=== PATIENT | male | born 1940 | race Caucasian/White ===

== ENCOUNTER 2024-12-19 19:21 | Emergency (ER) | payer MEDICARE, MEDICAID, SELFPAY ==
[2024-12-19 19:28] VITALS: BP 134/62; PULSE 85; O2SAT 98
[2024-12-19 19:31] VITALS: BP 130/64; PULSE 72; RESP 18; TEMP 36.7; O2SAT 96; BMI 28.7
--- NOTE | 2024-12-19 22:00 | ED.MALEGU ---
HPI - Male Genitourinary General Chief complaint: Urogenital-Male Stated complaint: HEMATURIA CATH PROBLEM Time Seen by Provider: 12/19/24 21:34 History of Present Illness ED Provider: Roland Yin MD HPI Narrative: Patient is sent for inability we placed suprapubic catheter per staff Patient noncontributory Related Data Allergies Allergy/AdvReac Type Severity Reaction Status Date / Time ibuprofen [From Motrin] Allergy Severe ANGIOEDEMA Verified 12/19/24 19:42 PMFSH Social History Social History Advance Directives: No Advance Directives Information Provided: No Do you have a plan to hurt others: No Plan Physical Exam Vital Signs: Vital Signs: Last Vital Signs Temp 98.1 F 12/19/24 19:31 Pulse 72 12/19/24 19:31 Resp 18 12/19/24 19:31 BP 130/64 12/19/24 19:31 Pulse Ox 96 12/19/24 19:31 O2 Del Method Room Air 12/19/24 19:31 BMI result Body Mass Index 28.7 Const: Other: EXAM: Gen: Alert, awake, no distress. Demented no verbal responses Head: Cranial deformities chronic appearing Eyes: Anicteric, Normal conjunctiva. ENT: Moist mucosa, no pallor. ? Neck: Supple. Respiratory: Breathing comfortably, No distress.Clear to auscultation bilaterally, symmetric chest expansion, No wheeze, rales, ronchi. Cardiovascular: Regular rate and rhythm. No murmurs or rub. Well perfused periphery, warm extremities. No edema. ? Abdominal: No FOCAL TENDERNESS. Low abdominal suprapubic region with clean dry intact normal-appearing suprapubic site the initial evaluation the suprapubic catheter was sitting with the distal tip directly at the ostomy site. There was no blood little bit of urine draining. The urine in the drainage catheter was cloudy thick blood-tinged. Normal appearing suprapubic tract tissue protruding from the ostomy : No flank tenderness. Medical Decision Making Medical Decision Making [facility] Narrative: 84-year-old male with dislodged suprapubic catheter. The catheter was advanced with balloon expanded with 10 cc of saline confirmed with dynamic bladder ultrasound at the bedside. No obstructive uropathy seen no sirs or sepsis criteria presumably the patient is getting ongoing treatment for UTI. The patient was sent not for diagnostic evaluation but for replacement of the tube so I will defer additional UTI treatment diagnosis to the staff at his facility Procedures Procedure Narrative Procedure Narrative: Suprapubic catheter which was displaced with decompressed balloon was reintroduced. Balloon filled with 10 cc. Confirmation with bedside ultrasound shows inflated balloon in the bladder no evidence of hydronephrosis Catheter Insertion (Urinary) Date of insertion: 12/20/24 Reason for placing indwelling catheter: Other (Dislodged chronic suprapubic) Bladder scan/ultrasound used before catheterization: Yes Estimated amount of urine (mLs): 20 Catheter type/location: Suprapubic Results: successfully catheterized-immediate flow Procedure performed: without complications Complications: None Discharge Plan Discharge Clinical Impression: Chronic suprapubic catheter Patient Disposition: [facility] Instructions: Urinary Tract Infection in Men (ED) Additional Instructions: The patient came in with a displaced suprapubic catheter. Under ultrasound guidance this was replaced and irrigated effectively. No signs of urologic obstruction were seen after this the balloon was confirmed to be inflated within the bladder. Print Language: Hungarian
== END 2024-12-20 00:06 | disposition skilled nursing facility (03) ==
PROVIDERS: Emergency Provider Emergency Medicine
DX: R31.9 Hematuria, unspecified (principal); T83.028A Displacement of other urinary catheter, initial encounter; Y73.2 Prosthetic and other implants, materials and accessory gastroenterology and urology devices associated with adverse incidents; Y92.89 Other specified places as the place of occurrence of the external cause
CPT/HCPCS: 51702; 99283; 99284

== ENCOUNTER 2025-07-01 03:23 | Inpatient (IN) | payer MEDICARE, MEDICAID, SELFPAY ==
[2025-07-01] VITALS (16 sets, daily range): BP systolic 100–160; BP diastolic 57–94; PULSE 90–138; RESP 16–20; TEMP 35.8–36.9; O2SAT 90–98; BMI 25.1; BMI 32.7
--- NOTE | 2025-07-01 | ECG_ITS ---
Test Reason : tachycardia Blood Pressure : */* mmHG Vent. Rate : 103 BPM Atrial Rate : 103 BPM P-R Int : 250 ms QRS Dur : 100 ms QT Int : 334 ms P-R-T Axes : * -48 10 degrees QTcB Int : 437 ms Sinus tachycardia with 1st degree A-V block Left axis deviation Inferior infarct (cited on or before 01-Jul-2025) Anteroseptal infarct (cited on or before 28-Aug-2008) Abnormal ECG When compared with ECG of 01-Jul-2025 08:19, Premature ventricular complexes are no longer Present Nonspecific T wave abnormality has replaced inverted T waves in Inferior leads QT has shortened Referred By: Tan Patterson Electronically Signed By: SERAFIN QUIROS MD
--- NOTE | ~2025-07-01 | XR_ITS ---
CLINICAL HISTORY: hypoxia 1 view chest x-ray Comparison: None provided Findings: There is mild coarsening of interstitial markings in the right upper lobe. There is elevation of the left hemidiaphragm. Normal size heart. No acute fracture. IMPRESSION: 1. Mild nonspecific coarsening of the interstitial markings in the right upper lobe. 2. Elevation of the left hemidiaphragm. This document has been electronically signed by: Chaparrita Prasad on 07/01/2025 07:59:55
--- NOTE | ~2025-07-01 | CT_ITS ---
CLINICAL HISTORY: osteomyelitis sacral region CT abdomen and pelvis with contrast Comparison: None provided Findings: Mild dependent subsegmental atelectasis is seen in bilateral lower lobes. Several nonobstructive right renal stones are present measuring up to 9 mm. 1.1 cm enhancing right superior renal lesion is present (axial image 28 of series 3). Bilateral renal cortical atrophy is present. The liver, gallbladder, pancreas, spleen, and bilateral adrenal glands appear within normal limits. There is no evidence of bowel obstruction. The appendix appears normal. There is no pneumoperitoneum or ascites. Small fat containing umbilical hernia is present. The urinary bladder is decompressed by a superior pubic Tomlinson catheter. There is no adenopathy. Left ischial decubitus ulcer is present with skin thickening. There has been prior resection of S5. There is demineralization of the visualized bones. Severe degenerative changes are seen in the spine with Schmorl's node at the superior endplate of L3. IMPRESSION: 1. Left ischial decubitus ulcer with adjacent skin thickening. 2. 1.1 cm enhancing right superior renal lesion. Recommend nonemergent CT or MRI renal mass protocol for further evaluation. 3. Several nonobstructive right renal stones measuring up to 9 mm. 4. Other findings as described. This document has been electronically signed by: Chaparrita Prasad on 07/01/2025 06:44:24
--- NOTE | ~2025-07-01 | CT_ITS ---
CLINICAL HISTORY: trauma CT head without contrast Comparison: None provided Findings: Focal encephalomalacia is seen in the left occipital lobe. Cortical volume loss is seen with associated mild prominence of the ventricular system. Mild bilateral periventricular hypodensities are noted. There is no evidence of hemorrhage. Mild mucosal thickening is seen in bilateral ethmoid air cells. There is opacification of left mastoid air cells. The orbits are within normal limits. Calvarial thickening is present. No acute fracture is identified. IMPRESSION: 1. No acute intracranial findings. 2. Remote left occipital lobe infarct. 3. Mild chronic microvascular ischemic disease. 4. Calvarial thickening. 5. Bilateral ethmoid air cell and left mastoid air cell disease. This document has been electronically signed by: Chaparrita Prasad on 07/01/2025 06:28:44
--- NOTE | ~2025-07-01 | CT_ITS ---
CLINICAL HISTORY: trauma CT cervical spine without contrast Comparison: None provided Findings: Disc space narrowing is seen at C4/5, C5/6, and C6/7, severe at C5/6. Multilevel disc calcifications are present. Significant multilevel facet arthropathy is present. Cervical vertebral body heights are well-maintained. Schmorl's node is seen in the superior endplate of T3. No acute fracture is identified. There is grade 1 retrolisthesis of C3. Multifocal canal stenosis is present. The thyroid gland appears normal. The lung apices are clear. IMPRESSION: 1. No acute osseous abnormality is identified. 2. Moderate to severe degenerative changes in the cervical spine. This document has been electronically signed by: Chaparrita Prasad on 07/01/2025 06:23:43
--- NOTE | 2025-07-01 03:43 | ECG_ITS ---
Test Reason : fall Blood Pressure : */* mmHG Vent. Rate : 146 BPM Atrial Rate : * BPM P-R Int : * ms QRS Dur : 104 ms QT Int : 318 ms P-R-T Axes : * -58 196 degrees QTcB Int : 495 ms Supraventricular tachycardia Left axis deviation Inferior infarct , age undetermined Anteroseptal infarct Marked ST abnormality, possible lateral subendocardial injury Abnormal ECG When compared with ECG of 03-Sep-2013 11:52, SVT has replaced NSR with PAcs Referred By: Generic ED Physician Electronically Signed By: SERAFIN QUIROS MD
[2025-07-01 04:02] LABS: MANUAL DIFF FLAG NO
[2025-07-01 04:03] LABS: Hematocrit 41.0 % (42.0-52.0); Hemoglobin 13.1 g/dl (14.0-18.0); Imm Gran Abs Auto 0.20 X10*3/uL (0.00-0.03); Imm Gran Pct Auto 1.8 % (0.0-0.4); Lymphocytes Absolute Auto 2.2 X10*3/uL (1.2-4.9); Mean Corpuscular HGB Conc 32.0 g/dl (31.0-36.0); Mean Corpuscular Hemoglobin 29.0 pg (27.0-33.0); Mean Corpuscular Volume 90.7 fL (80.0-98.0); NRBC Abs Auto 0.000 X10*3/uL (0.0-0.012); NRBC Pct Auto 0.0 /100WBC (0.0-0.2); Platelet Count 258 X10*3/uL (160-400); Red Blood Count 4.52 X10*6/uL (4.60-5.80); White Blood Count 11.2 X10*3/uL (4.8-10.8)
[2025-07-01 04:15] LABS: Anion Gap 14 (12-20)
[2025-07-01 04:24] LABS: Troponin-I High Sensitivity 22.6 ng/L (<3.5-35.0)
[2025-07-01 04:25] LABS: Alanine Aminotransferase 16 U/L (0-40); Albumin Level 3.6 g/dL (3.5-5.0); Alkaline Phosphatase 85 U/L (39-117); Aspartate Amino Transferase 36 U/L (5-37); Blood Urea Nitrogen 30 mg/dL (9-16); Calcium 9.5 mg/dL (8.4-10.2); Carbon Dioxide 19 mmol/L (22-29); Chloride 110 mmol/L (96-108); Creatinine Clr Calc Pharmacy 59.2; Estimated Glomerular Filt Rate > 60; Magnesium 2.1 mg/dL (1.6-2.6); Potassium 3.8 mmol/L (3.3-5.1); Sodium 139 mmol/L (135-145); Total Protein 9.0 g/dL (6.5-8.0)
[2025-07-01 04:50] LABS: Appearance Urine Turbid; Glucose Urine UA Negative (Negative); PH 7.0 (5.0-9.0); Specific Gravity - Urine 1.015 (1.005-1.025); UMIC TRIGGER UACC YES
--- NOTE | 2025-07-01 05:04 | ED.GENADULT ---
HPI - General Adult General Chief complaint: Fall Stated complaint: fall Time Seen by Provider: 07/01/25 03:52 Source: EMS and RN notes reviewed Limitations: other (Dementia) History of Present Illness ED Provider: Dali Tomlinson PA-C HPI narrative: 85-year-old male with a history of dementia, prior CVA, urinary retention with chronic suprapubic catheter, recurrent urinary tract infections, hypothyroidism, who presents from [facility] after an unwitnessed fall. Per EMS, the patient fell out of bed, he was found down on the ground. History extremely limited secondary to the patient has dementia, and report from the skilled nursing is very limited. Related Data Home Medications ?Medication ?Instructions ?Recorded ?Confirmed acetaminophen 325 mg tablet 650 mg PO Q4H PRN pain/fever 07/01/25 07/01/25 (Tylenol) acetaminophen 650 mg rectal 650 mg WY Q4H PRN general 07/01/25 07/01/25 suppository discomfort/fever ascorbic acid (vitamin C) 500 mg 500 mg PO DAILY 07/01/25 07/01/25 tablet aspirin 81 mg chewable tablet 81 mg PO DAILY 07/01/25 07/01/25 bisacodyl 10 mg rectal suppository 10 mg [place] DAILY PRN Constipation 07/01/25 07/01/25 ferrous sulfate 324 mg (65 mg 324 mg PO DAILY 07/01/25 07/01/25 iron) tablet,delayed release levothyroxine 100 mcg tablet 100 mcg PO DAILY@0600 07/01/25 07/01/25 magnesium hydroxide 400 mg/5 mL 30 ml PO DAILY PRN Constipation 07/01/25 07/01/25 oral suspension (Milk of Magnesia) multivitamin 1 tab PO DAILY 07/01/25 07/01/25 ondansetron HCl 4 mg tablet 4 mg PO Q8H PRN Nausea 07/01/25 07/01/25 sennosides 8.6 mg tablet (senna) 17.2 mg PO BEDTIME 07/01/25 07/01/25 sodium phosphates 19 gram-7 118 ml W[place] DAILY PRN Constipation 07/01/25 07/01/25 gram/118 mL enema (Fleet Enema) sulfamethoxazole 800 1 tab PO DAILY PRN catheter change 07/01/25 07/01/25 mg-trimethoprim 160 mg tablet (Bactrim DS) Allergies Allergy/AdvReac Type Severity Reaction Status Date / Time ibuprofen (From Motrin) Allergy Severe ANGIOEDEMA Verified 07/01/25 03:37 Review of Systems Review of Systems: Unable to obtain Yes all other systems are reviewed and are negative [facility] Past Medical History Attestation statement: The following information was validated with the patient. Medical History (Updated 07/01/25 @ 09:54 by ENRIKE Boone) Stroke Dementia Social History Social History Patient Tobacco Use Status: Never used Tobacco Physical Exam ED Vital Signs: Vital Signs - 24 hr 07/01/25 03:30 07/01/25 03:39 07/01/25 05:47 Temperature 98.1 F Pulse Rate 90 107 H 107 H Respiratory Rate 16 16 18 Blood Pressure 144/81 H 124/82 132/67 Pulse Oximetry 92 91 L 98 Oxygen Delivery Method Room Air Room Air Nasal Cannula Oxygen Flow Rate 2 07/01/25 06:00 07/01/25 07:25 07/01/25 07:36 Temperature Pulse Rate 111 H 138 H 127 H Respiratory Rate 17 18 16 Blood Pressure 116/63 142/61 H Pulse Oximetry 95 93 95 Oxygen Delivery Method Nasal Cannula Nasal Cannula Nasal Cannula Oxygen Flow Rate 2 2 2 07/01/25 08:08 07/01/25 08:11 07/01/25 08:48 Temperature 96.5 F L Pulse Rate 125 H 96 109 H Respiratory Rate 18 20 18 Blood Pressure 120/82 115/76 Pulse Oximetry 97 95 95 Oxygen Delivery Method Nasal Cannula Nasal Cannula Room Air Oxygen Flow Rate 2 2 07/01/25 08:58 07/01/25 09:07 Temperature Pulse Rate 104 H 111 H Respiratory Rate 20 Blood Pressure 100/57 L 160/65 H Pulse Oximetry 92 Oxygen Delivery Method Room Air Oxygen Flow Rate BMI result Body Mass Index 25.1 Const Other: Ill-appearing, cachectic, contusion noted left posterior head Orientation/consciousness: oriented to person HENMT Other: Dry oral mucosa Resp Effort & Inspection: normal respiratory effort Cardio Other: Normal peripheral perfusion GI Other: Skin Other: Warm dry no rash Neuro Other: Globally weak, somewhat contracted in both upper and lower extremities, able to extend both arms, knees are held in flexion General: oriented to person, no focal motor deficits and CN's II-XI intact bilaterally Psych Other: Cooperative Course Course Course Narrative: Signed out to day team pending likely admission, once imaging studies are complete Reevaluation(s) Reevaluation #1: At 5:00 a.m. on July 01, a sepsis focused exam was performed. Screening labs including blood cultures and lactic we will be obtained. We will give IV fluid therapy and start empiric ceftriaxone Time: 05:00 Reevaluation #2: DR. Crane's progress note: I assumed care for this patient at 07:[address] abdomen pelvis check, this is 85-year-old male came in after sustained a fall found to be in rapid AFib no old record indicating chronic AFib, will assume it is a new onset atrial fibrillation. Patient received 6 mg followed by 12 meant rim of adenosine with slow for heart rate and underlying rhythm was atrial fibrillation. Patient was given 5 mg IV metoprolol with successful heart rate control 105, patient was given metoprolol p.o. to maintain heart rate. UTI with SIRS criteria no septic shock or severe sepsis. Time: 08:32 Medications Administered Generic Name Dose Route Start Last Admin Trade Name Freq PRN Reason Stop Dose Admin Apixaban 5 mg 07/01/25 10:25 07/01/25 13:03 Apixaban 5 Mg Tablet PO 5 mg BID NIKKI Administration Lactated Ringer's 1,000 mls @ 100 mls/hr 07/01/25 09:45 07/01/25 11:02 Lr IVCONT 100 mls/hr .Q10H NIKKI Administration Metoprolol Tartrate 25 mg 07/01/25 14:30 07/01/25 15:34 Metoprolol Tartrate 25 Mg Tablet PO 25 mg Q6H NIKKI Administration Protocol Sodium Chloride 3 ml 07/01/25 16:00 07/01/25 15:35 0.9 % Sodium Chloride Flush 3 Ml Syringe IVFLUSH Not Given QSHIFT NIKKI Discontinued Medications Generic Name Dose Route Start Last Admin Trade Name Freq PRN Reason Stop Dose Admin Adenosine 6 mg 07/01/25 06:40 07/01/25 06:46 Adenosine 6 Mg/2 Ml Vial IVPUSH 07/01/25 06:41 6 mg ONCE ONE Administration Adenosine 12 mg 07/01/25 07:01 07/01/25 07:33 Adenosine 6 Mg/2 Ml Vial IVPUSH 07/01/25 07:02 12 mg ONCE ONE Administration Adenosine 12 mg 07/01/25 07:37 07/01/25 08:53 Adenosine 6 Mg/2 Ml Vial IVPUSH 07/01/25 07:38 Not Given ONCE ONE Sodium Chloride 1,000 mls @ 999 mls/hr 07/01/25 04:15 07/01/25 05:46 Ns IV 07/01/25 05:15 Infused .Q1H1M NIKKI Infusion Ceftriaxone Sodium 2 gm/ 50 mls @ 100 mls/hr 07/01/25 04:59 07/01/25 05:46 Sodium Chloride IV 07/01/25 05:28 Infused ONCE ONE Infusion Lactated Ringer's 1,000 mls @ 999 mls/hr 07/01/25 07:15 07/01/25 08:58 Lr IV 07/01/25 08:15 Infused .Q1H1M NIKKI Infusion Iohexol 85 ml 07/01/25 05:30 07/01/25 05:30 Iohexol 350 Mg/Ml 100 Ml Infus..Btl IV 07/01/25 05:31 85 ml ONCE ONE Administration Metoprolol Tartrate 5 mg 07/01/25 08:03 07/01/25 08:08 Metoprolol Tartrate 5 Mg/5 Ml Vial IVPUSH 07/01/25 08:04 5 mg ONCE ONE Administration Protocol Metoprolol Tartrate 25 mg 07/01/25 08:33 07/01/25 09:07 Metoprolol Tartrate 25 Mg Tablet PO 07/01/25 08:34 25 mg ONCE ONE Administration Protocol Medical Decision Making Medical Decision Making MDM Narrative: 85-year-old male with a history of dementia, prior CVA, urinary retention with chronic suprapubic catheter, recurrent urinary tract infections, hypothyroidism, who presents from [facility] after an unwitnessed fall. Per EMS, the patient fell out of bed, he was found down on the ground. History extremely limited secondary to the patient has dementia, and report from the skilled nursing is very limited. Problem: Age, dementia , chronic indwelling suprapubic catheter History: Very limited from EMS and nursing report I have considered the following differential diagnoses: Intracranial hemorrhage, cervical spine injury, fracture, dislocation, decubitus ulcer/cellulitis, purulent cellulitis, osteomyelitis, sepsis, pneumonia, urinary tract infection, viral syndrome Plan: Concerned for sepsis, the patient is tachycardic, it appears he may be hypoxic, he was initially 94% on arrival on room air, he is fluctuating, dropping to 86% on room air, I placed him on 2 L nasal cannula, he is hypothermic per rectal temp. The patient is in a cervical collar, I think he may not truly be hypoxic, we will reassess once the collar can be cleared, it may be positional. We are also not getting an accurate reading when the pulse oximeter was placed on his finger. In addition to screening labs, obtaining blood cultures and lactic, we will give IV fluid therapy and starting ceftriaxone. We will be placing him on the bear hugger. Unclear what his baseline mentation is, he does have evidence of head trauma on exam, clearly he will be scanned, he is currently in a C-collar. Given the findings on exam of the decubitus ulcers, I am scanning his abdomen and pelvis to rule out the presence of osteomyelitis. We will collect a urine sample, viral panel and obtain a chest x-ray given hypoxia. Per the skilled nursing record, he has no underlying pulmonary conditions. I have independently reviewed the following tests: Labs: Slight leukocytosis, no left shift, not anemic, no electrolyte abnormality, troponin 22.6, lactic 1.3, urine positive for infection, we have no prior urine cultures to review sensitivity profile. EKG: SVT, rate of 146, ST depression noted V4 through V6, unclear with the patient's baseline is we have no priors, QTC 495 Chest x-ray: CT brain: CT cervical spine CT abdomen and pelvis: Lab Data 07/01/25 03:50 07/01/25 03:50 Labs: Lab Results 07/01/25 07/01/25 07/01/25 Range/Units 03:50 04:39 04:41 WBC 11.2 H (4.8-10.8) X10*3/uL RBC 4.52 L (4.60-5.80) X10*6/uL Hgb 13.1 L (14.0-18.0) g/dl Hct 41.0 L (42.0-52.0) % MCV 90.7 (80.0-98.0) fL MCH 29.0 (27.0-33.0) pg MCHC 32.0 (31.0-36.0) g/dl RDW 14.3 (11.0-16.0) % Plt Count 258 (160-400) X10*3/uL MPV 9.4 (9.4-12.4) fL Immature Gran % (Auto) 1.8 H (0.0-0.4) % Neut % (Auto) 65.4 (45-73) % Lymph % (Auto) 19.3 L (20-40) % [place] % (Auto) 5.9 (2-11) % Eos % (Auto) 6.7 H (0-4) % Baso % (Auto) 0.9 (0-2) % Lymph # (Auto) 2.2 (1.2-4.9) X10*3/uL [place] # (Auto) 0.7 (0.1-1.2) X10*3/uL Eos # (Auto) 0.8 H (0.0-0.4) X10*3/uL Baso # (Auto) 0.1 (0.0-0.2) X10*3/uL Abs Immat Gran (auto) 0.20 H (0.00-0.03) X10*3/uL Absolute Neuts (auto) 7.3 (2.0-8.3) x10*3/uL Absolute Nucleated RBC 0.000 (0.0-0.012) X10*3/uL Nucleated RBC % (auto) 0.0 (0.0-0.2) /100WBC Sodium 139 (135-145) mmol/L Potassium 3.8 (3.3-5.1) mmol/L Chloride 110 H (96-108) mmol/L Carbon Dioxide 19 L (22-29) mmol/L Anion Gap 14 (12-20) BUN 30 H (9-16) mg/dL Creatinine 0.97 (0.5-1.4) mg/dL Estim Creat Clear Calc 59.2 Estimated GFR > 60 Random Glucose 115 (60-115) mg/dL Lactic Acid 1.3 (0.5-2.0) mmol/L Calcium 9.5 (8.4-10.2) mg/dL Magnesium 2.1 (1.6-2.6) mg/dL Total Bilirubin 0.3 (0.0-1.0) mg/dL AST 36 (5-37) U/L ALT 16 (0-40) U/L Alkaline Phosphatase 85 (39-117) U/L Troponin I High Sens 22.6 (<3.5-35.0) ng/L Total Protein 9.0 H (6.5-8.0) g/dL Albumin 3.6 (3.5-5.0) g/dL TSH 2.49 (0.32-4.0) uIU/mL Urine Color Yellow Urine Appearance Turbid Urine pH 7.0 (5.0-9.0) Ur Specific Comfort 1.015 (1.005-1.025) Urine Protein 100 (2+) H (Neg-Trace) mg/dL Urine Glucose (UA) Negative (Negative) mg/dL Urine Ketones Negative (Negative) mg/dL Urine Blood Moderate (2+) H (Negative) Urine Nitrite Positive H (Negative) Ur Leukocyte Esterase Large (3+) H (Negative) Urine RBC 6-10 H (0-2) /HPF Urine WBC >50 H (0-5) /HPF Ur Squamous Epith Cells 0-2 (0-2) /HPF Urine Bacteria 4+ (None Seen) Hyaline Casts 0-2 (0-2) /LPF Influenza Type A (PCR) NEGATIVE (Negative) Influenza Type B (PCR) NEGATIVE (Negative) RSV RNA Qual (PCR) NEGATIVE (Negative) SARS-CoV-2 RNA (RT-PCR) NEGATIVE (Negative) 07/01/25 Range/Units 06:11 WBC (4.8-10.8) X10*3/uL RBC (4.60-5.80) X10*6/uL Hgb (14.0-18.0) g/dl Hct (42.0-52.0) % MCV (80.0-98.0) fL MCH (27.0-33.0) pg MCHC (31.0-36.0) g/dl RDW (11.0-16.0) % Plt Count (160-400) X10*3/uL MPV (9.4-12.4) fL Immature Gran % (Auto) (0.0-0.4) % Neut % (Auto) (45-73) % Lymph % (Auto) (20-40) % [place] % (Auto) (2-11) % Eos % (Auto) (0-4) % Baso % (Auto) (0-2) % Lymph # (Auto) (1.2-4.9) X10*3/uL [place] # (Auto) (0.1-1.2) X10*3/uL Eos # (Auto) (0.0-0.4) X10*3/uL Baso # (Auto) (0.0-0.2) X10*3/uL Abs Immat Gran (auto) (0.00-0.03) X10*3/uL Absolute Neuts (auto) (2.0-8.3) x10*3/uL Absolute Nucleated RBC (0.0-0.012) X10*3/uL Nucleated RBC % (auto) (0.0-0.2) /100WBC Sodium (135-145) mmol/L Potassium (3.3-5.1) mmol/L Chloride (96-108) mmol/L Carbon Dioxide (22-29) mmol/L Anion Gap (12-20) BUN (9-16) mg/dL Creatinine (0.5-1.4) mg/dL Estim Creat Clear Calc Estimated GFR Random Glucose (60-115) mg/dL Lactic Acid (0.5-2.0) mmol/L Calcium (8.4-10.2) mg/dL Magnesium (1.6-2.6) mg/dL Total Bilirubin (0.0-1.0) mg/dL AST (5-37) U/L ALT (0-40) U/L Alkaline Phosphatase (39-117) U/L Troponin I High Sens 49.8 H D (<3.5-35.0) ng/L Total Protein (6.5-8.0) g/dL Albumin (3.5-5.0) g/dL TSH (0.32-4.0) uIU/mL Urine Color Urine Appearance Urine pH (5.0-9.0) Ur Specific Comfort (1.005-1.025) Urine Protein (Neg-Trace) mg/dL Urine Glucose (UA) (Negative) mg/dL Urine Ketones (Negative) mg/dL Urine Blood (Negative) Urine Nitrite (Negative) Ur Leukocyte Esterase (Negative) Urine RBC (0-2) /HPF Urine WBC (0-5) /HPF Ur Squamous Epith Cells (0-2) /HPF Urine Bacteria (None Seen) Hyaline Casts (0-2) /LPF Influenza Type A (PCR) (Negative) Influenza Type B (PCR) (Negative) RSV RNA Qual (PCR) (Negative) SARS-CoV-2 RNA (RT-PCR) (Negative) Independent Interpretation I performed an independent interpretation of an: CT Scan (Head/C-spine/abdomen pelvis:1. Left ischial decubitus ulcer with adjacent skin thickening. 2. 1.1 cm enhancing right superior renal lesion. Recommend nonemergent CT or MRI renal mass protocol for further evaluation. 3. Several nonobstructive right renal stones measuring up to 9 mm. 4. Other finding) Radiology Impression Discussion of test interpretation with radiology: I have reviewed the radiologist's reading. Critical Care Time Critical Care Time Critical Care Time: Yes Total Critical Care Time: 40 Attestation: I Dali Tomlinson PA-C have personally performed 40 minutes of critical care time not including lines and procedures; sepsis, UTI, AFib RVR need for admission Discharge Plan Discharge Clinical Impression: Sepsis, Urinary tract infection, Decubitus ulcer of sacral region, Atrial fibrillation with RVR Patient Disposition: Admitted As Inpatient Interventions: Admission Worksheet (ED) Last Done: 07/01/25 18:03 Discharge Date/Time: 07/01/25 19:43
[2025-07-01 05:10] LABS: UACC Culture Trigger YES
[2025-07-01 05:26] LABS: Resp Syncy Virus RNA Qual PCR NEGATIVE (Negative); SARS COV2 PCR INHOUSE NEGATIVE (Negative)
[2025-07-01] MEDS: iohexoL 350 MG/ML 100 ML INFUS..BTL 85 ML IV (05:30)
--- NOTE | 2025-07-01 06:22 | ECG_ITS ---
Test Reason : tachycardia Blood Pressure : */* mmHG Vent. Rate : 144 BPM Atrial Rate : * BPM P-R Int : * ms QRS Dur : 114 ms QT Int : 332 ms P-R-T Axes : * -53 178 degrees QTcB Int : 514 ms Supraventricular tachycardia Left axis deviation Minimal voltage criteria for LVH, may be normal variant ( Neri product ) Inferior infarct (cited on or before 01-Jul-2025) Anterior infarct (cited on or before 28-Aug-2008) Marked ST abnormality, possible lateral subendocardial injury Abnormal ECG When compared with ECG of 01-Jul-2025 03:57, No significant change was found Referred By: Ellen Crane Electronically Signed By: SERAFIN QUIROS MD
[2025-07-01 06:41] LABS: Troponin-I High Sensitivity 49.8 ng/L (<3.5-35.0)
[2025-07-01] MEDS: Adenosine 6 MG/2 ML VIAL IVPUSH (06:46)
[2025-07-01] MEDS: Lactated Ringers 1,000 ML 999 ML IV (07:29)
[2025-07-01] MEDS: Adenosine 6 MG/2 ML VIAL 12 MG IVPUSH (07:33)
--- NOTE | 2025-07-01 07:55 | ECG_ITS ---
Test Reason : afib Blood Pressure : */* mmHG Vent. Rate : 123 BPM Atrial Rate : * BPM P-R Int : * ms QRS Dur : 98 ms QT Int : 344 ms P-R-T Axes : * -52 167 degrees QTcB Int : 492 ms Poor data quality Atrial fibrillation with rapid ventricular response with premature ventricular or aberrantly conducted complexes Left axis deviation Moderate voltage criteria for LVH, may be normal variant ( R in aVL , Jean product ) Inferior infarct (cited on or before 01-Jul-2025) Anteroseptal infarct (cited on or before 28-Aug-2008) ST & T wave abnormality, consider lateral ischemia Abnormal ECG When compared with ECG of 01-Jul-2025 06:22, Atrial fibrillation has replaced Supraventricular tachycardia Serial changes of Inferior infarct Present Referred By: Aneesh Roman Electronically Signed By: SERAFIN QUIROS MD
--- NOTE | 2025-07-01 08:19 | ECG_ITS ---
Test Reason : afib Blood Pressure : */* mmHG Vent. Rate : 104 BPM Atrial Rate : 104 BPM P-R Int : 236 ms QRS Dur : 94 ms QT Int : 372 ms P-R-T Axes : * -46 -16 degrees QTcB Int : 489 ms Sinus tachycardia with 1st degree A-V block with occasional Premature ventricular complexes Left axis deviation Minimal voltage criteria for LVH, may be normal variant ( R in aVL ) Inferior infarct (cited on or before 01-Jul-2025) Anteroseptal infarct (cited on or before 28-Aug-2008) Abnormal ECG When compared with ECG of 01-Jul-2025 07:55, Sinus rhythm has replaced Atrial fibrillation ST no longer depressed in Lateral leads T wave inversion now evident in Inferior leads Referred By: Aneesh Roman Electronically Signed By: SERAFIN QUIROS MD
--- NOTE | 2025-07-01 08:20 | PC.NURSE ---
assumed care of pt at 0700. gave 12mg adenosine with Dr. Crane. HR initially improved and then held in 120s-130s. EKG obtained 5mg metoprolol with improvement in HR to 90s - 110s.
--- NOTE | 2025-07-01 08:45 | PC.NURSE ---
sign out given that pt was hypothermic, around 96.5. bear hugger on at sign-out. rectal temp checked - pt coccyx with erythema, pink foam dressing applied by previous shift. 95.6 trial off 2L O2 per Dr. Crane. 95% on RA semipublic cath draining clear pale yellow urine
--- NOTE | 2025-07-01 09:40 | PHA.MEDREC ---
Pharmacy Consult ? Medication Reconciliation Pharmacy has completed the medication reconciliation. List from [facility]
--- NOTE | 2025-07-01 09:42 | PM.IMHP ---
History of Present Illness Date of Service: 07/01/25 Attending physician on admission: Aneesh Roman Chief Complaint: fall This is an 85-year-old [place] care resident who was sent to the emergency department after an unwitnessed fall. There are no specific details surrounding this event although staff at the facility thought he may have fallen out of bed. The patient himself is unable to recount what occurred. He states that he did not fall. Patient's problem list documents history of dementia and previous stroke. Family at the bedside denies that the patient has a history of dementia or a history of stroke. Family reports that the patient is bed-bound stemming from arthritis and that is why he is at the [place] [facility] and that he hasn't ambulated in years. In the emergency department patient was noted to be hypothermic and tachycardic. EKG rhythm initially unclear, received 2 doses of adenosine followed by IV metoprolol with improvement in heart rate. ED thought likely atrial fibrillation. Labwork significant for leukocytosis of 11.2. Urinalysis was consistent with UTI and he was treated with IV ceftriaxone. CT scan shows left ischial decubitus ulcer with adjacent skin thickening, 1.1 cm enhancing right superior renal lesion, several nonobstructing right renal stones. Review of Systems Review of Systems: Yes all other systems are reviewed and are negative Constitutional: Constitutional: Denies fever(s) Gastrointestinal: Gastrointestinal: Denies abdominal pain [facility] Medical History (Updated 07/01/25 @ 09:54 by ENRIKE Boone) Stroke Dementia Social History Advance Directives: No Advance Directives Information Provided: Yes Meds Allergies Allergy/AdvReac Type Severity Reaction Status Date / Time ibuprofen (From Motrin) Allergy Severe ANGIOEDEMA Verified 07/01/25 03:37 Home Medications ?Medication ?Instructions ?Recorded ?Confirmed ?Last Taken ?Type acetaminophen 325 mg tablet 650 mg PO Q4H PRN pain/fever 07/01/25 07/01/25 Unknown History (Tylenol) acetaminophen 650 mg rectal 650 mg NM Q4H PRN general 07/01/25 07/01/25 Unknown History suppository discomfort/fever ascorbic acid (vitamin C) 500 mg 500 mg PO DAILY 07/01/25 07/01/25 06/30/25 History tablet aspirin 81 mg chewable tablet 81 mg PO DAILY 07/01/25 07/01/25 06/30/25 History bisacodyl 10 mg rectal suppository 10 mg NM DAILY PRN Constipation 07/01/25 07/01/25 Unknown History ferrous sulfate 324 mg (65 mg 324 mg PO DAILY 07/01/25 07/01/25 06/30/25 History iron) tablet,delayed release levothyroxine 100 mcg tablet 100 mcg PO DAILY@0600 07/01/25 07/01/25 06/30/25 History magnesium hydroxide 400 mg/5 mL 30 ml PO DAILY PRN Constipation 07/01/25 07/01/25 Unknown History oral suspension (Milk of Magnesia) multivitamin 1 tab PO DAILY 07/01/25 07/01/25 06/30/25 History ondansetron HCl 4 mg tablet 4 mg PO Q8H PRN Nausea 07/01/25 07/01/25 Unknown History sennosides 8.6 mg tablet (senna) 17.2 mg PO BEDTIME 07/01/25 07/01/25 06/30/25 History sodium phosphates 19 gram-7 118 ml NM DAILY PRN Constipation 07/01/25 07/01/25 Unknown History gram/118 mL enema (Fleet Enema) sulfamethoxazole 800 1 tab PO DAILY PRN catheter change 07/01/25 07/01/25 Unknown History mg-trimethoprim 160 mg tablet (Bactrim DS) Physical Exam Vital Signs and Narrative: Vital Signs: Last Vital Signs Temp 96.5 F L 07/01/25 08:11 Pulse 111 H 07/01/25 09:07 Resp 20 07/01/25 08:58 BP 160/65 H 07/01/25 09:07 Pulse Ox 92 07/01/25 08:58 O2 Del Method Room Air 07/01/25 08:58 O2 Flow Rate 2 07/01/25 08:11 BMI result Body Mass Index 25.1 Const: Other: hard of hearing General: alert and awake Orientation/consciousness: oriented to person, oriented to place and oriented to time (able to state his birthdate) Resp: Effort & Inspection: normal respiratory effort, able to speak in complete sentences, no respiratory distress and no use of accessory muscles Cardio: Rate: tachycardic GI: Inspection: No distended Palpation (GI): Soft to palpation and nontender : Other: suprapubic catheter in place, scant purulent material noted around tube; no surrounding erythema Skin: Other: skin changes involving the buttocks/ischium, scrotum and penis - please see picture in ED note Neuro: Other: moves b/l upper extremities General: oriented to person, oriented to place and oriented to time (able to state his birthdate) Extrem: Other: b/l LE contractures General: No pedal edema Results Labs 07/01/25 03:50 07/01/25 03:50 Labs: Laboratory Results - last 24 hr 07/01/25 07/01/25 07/01/25 03:50 04:39 04:41 MCV 90.7 MCH 29.0 MCHC 32.0 RDW 14.3 Plt Count 258 MPV 9.4 Immature Gran % (Auto) 1.8 H Neut % (Auto) 65.4 Lymph % (Auto) 19.3 L Churchill % (Auto) 5.9 Eos % (Auto) 6.7 H Baso % (Auto) 0.9 Lymph # (Auto) 2.2 Churchill # (Auto) 0.7 Eos # (Auto) 0.8 H Baso # (Auto) 0.1 Abs Immat Gran (auto) 0.20 H Absolute Neuts (auto) 7.3 Absolute Nucleated RBC 0.000 Nucleated RBC % (auto) 0.0 Anion Gap 14 Estim Creat Clear Calc 59.2 Estimated GFR > 60 Random Glucose 115 Lactic Acid 1.3 Calcium 9.5 Magnesium 2.1 Total Bilirubin 0.3 AST 36 ALT 16 Alkaline Phosphatase 85 Troponin I High Sens 22.6 Total Protein 9.0 H Albumin 3.6 Urine Color Yellow Urine Appearance Turbid Urine pH 7.0 Ur Specific [place] 1.015 Urine Protein 100 (2+) H Urine Glucose (UA) Negative Urine Ketones Negative Urine Blood Moderate (2+) H Urine Nitrite Positive H Ur Leukocyte Esterase Large (3+) H Urine RBC 6-10 H Urine WBC >50 H Ur Squamous Epith Cells 0-2 Urine Bacteria 4+ Hyaline Casts 0-2 Influenza Type A (PCR) NEGATIVE Influenza Type B (PCR) NEGATIVE RSV RNA Qual (PCR) NEGATIVE SARS-CoV-2 RNA (RT-PCR) NEGATIVE 07/01/25 06:11 MCV MCH MCHC RDW Plt Count MPV Immature Gran % (Auto) Neut % (Auto) Lymph % (Auto) Churchill % (Auto) Eos % (Auto) Baso % (Auto) Lymph # (Auto) Churchill # (Auto) Eos # (Auto) Baso # (Auto) Abs Immat Gran (auto) Absolute Neuts (auto) Absolute Nucleated RBC Nucleated RBC % (auto) Anion Gap Estim Creat Clear Calc Estimated GFR Random Glucose Lactic Acid Calcium Magnesium Total Bilirubin AST ALT Alkaline Phosphatase Troponin I High Sens 49.8 H D Total Protein Albumin Urine Color Urine Appearance Urine pH Ur Specific [place] Urine Protein Urine Glucose (UA) Urine Ketones Urine Blood Urine Nitrite Ur Leukocyte Esterase Urine RBC Urine WBC Ur Squamous Epith Cells Urine Bacteria Hyaline Casts Influenza Type A (PCR) Influenza Type B (PCR) RSV RNA Qual (PCR) SARS-CoV-2 RNA (RT-PCR) Assessment and Plan (1) Urinary tract infection: Status: Acute (2) Atrial fibrillation with RVR: Status: Acute (3) Decubitus ulcer of sacral region: Status: Acute Plan This is an 85-year-old male, long-term care resident at [facility] with history of dementia, stroke, urinary retention with chronic suprapubic catheter, bed-bound who was brought to the emergency room after an unwitnessed fall found to have UTI and new onset atrial flutter Sepsis due to UTI from chronic suprapubic catheter no severe features Continue IV ceftriaxone follow urine culture, blood cultures hypothermia likely due to above Aicha Hugger until normothermic tachycardia EKG initially appeared to be SVT received two doses of adenosine in ED subsequent EKGs appear more c/w aflutter, HR improved after IV lopressor continue po lopressor, start AC with Eliquis echo and cardiology elevated troponin likely type 2 NSTEMI due to demand from acute infection and tachycardia echo will check third troponin decubitus ulcer/pressure injury of ischium/b/l buttocks/scrotum stage II POA. Has been at [facility] since 05/12 and wound was present at that time and reportedly has improved significantly pt reporedly not compliant with repositioning continue local wound care, repositioning wound care consultation h/o stroke continue ASA does not appear to be on a statin hypothyroidism check TSH continue po synthroid dvt ppx - Eliquis code status - confirmed with family full code Patient will likely require two midnight stay in the hospital for management of new aflutter, UTI requiring IV antibiotics, specialist evaluation and close cardiac monitoring Quality Stroke Does the patient have a stroke diagnosis?: No VTE Prior VTE?: No VTE Risk Level:: Medical - moderate - high VTE Device Contraindication: N/A - Device Ordered VTE Drug Contraindication: N/A - Med Ordered
[2025-07-01 11:02] LABS: Troponin-I High Sensitivity 232.7 ng/L (<3.5-35.0)
[2025-07-01] MEDS: Lactated Ringers 1,000 ML 100 ML IVCONT ×2 (11:02→22:43)
[2025-07-01 11:24] LABS: Thyroid Stimulating Hormone 2.49 uIU/mL (0.32-4.0)
--- NOTE | 2025-07-01 12:30 | CA_ITS ---
Transthoracic Echocardiogram Patient (Last, First, Middle): Rico Gomez, Gender: Male Date of : 1940 Age: 85 Procedure Date: 07/01/2025 Procedure Type: Transthoracic Echocardiogram Location: ER Height: 180.34 cm Weight: 81.65 kg BSA: 2.02 m2 Heart Rate: 105 bpm BP: 118 / 68 mmHg Mill Washer: MARIBEL Referring MD: Lena CALVERT Wet Suit Gluer: Garrett Medrano MD Symptoms: new aflutter Study Quality: Adequate w contrast ECG Rhythm: Undetermined Conclusions: - 1. Technically difficult study despite use of contrast agent 2. Mildly to moderately reduced LV ejection fraction 40-45% 3. Cardiac valvular Dopplers within normal limits 4. Upper limits of normal RV systolic pressure with normal right atrial pressures Findings Procedure Information Contrast agent, definity, is being given per protocol without apparent complications. Left Ventricle The left ventricle was not well visualized. Normal left ventricular cavity size. The left ventricular systolic function is mild to moderately decreased. The visually estimated ejection fraction is between 40-45%. Regional wall motion abnormalities can not be excluded due to suboptimal endocardial definition. Diastolic function is indeterminate on the basis of available data. Right Ventricle The right ventricle was not well visualized. Normal right ventricular cavity size. Atria The left atrium is normal in size. Interatrial shunt cannot be excluded. The right atrium was not well visualized. Aortic Valve The aortic valve was not well visualized. There is no aortic valve stenosis. There is no aortic valve regurgitation. Mitral Valve The mitral valve was not well visualized. There is trace mitral valve regurgitation. There is no mitral valve stenosis. Pulmonic Valve The pulmonic valve was not well visualized. Tricuspid Valve The tricuspid valve was not well visualized. There is trace tricuspid valve regurgitation. Normal right atrial pressure. There is no evidence of pulmonary hypertension. Great Vessels The aorta was not well visualized. The pulmonary artery was not well visualized. Venous The inferior vena cava is normal in size. Pericardium/Pleural The pericardium was not well visualized. Prior Study Comparison No prior study available for comparison. Measurements 2D Linear Measurements IVSd: 0.92 0.6-0.9/0.6-1.0 cm LVIDd: 4.10 3.9-5.3/4.2-5.9 cm LVIDd Index: 2.03 2.4-3.2/2.2-3.1 cm/m2 LVIDs: 3.81 2.0-3.6 cm LVPWd: 0.76 0.7-1.1 cm LA Diam: 2.50 2.7-3.8/3.0-4.0 cm LAIDs Index: 1.24 1.5-2.3 cm/m2 LV Mass: 128.73 67-162/88-224 g LV Mass Index: 63.73 43-95/49-115 g/m2 LVOT Diam: 2.60 3.0+(-)1.3 cm 2D Systolic Function EF 4C: 44.00 >55% EF 2C: 44.80 >55% EF BiP: 44.30 >55% Mitral Valve MV Pk E: 0.99 Aortic Valve AoV Pk Lázaro: 0.83 AoV Mn Lázaro: 0.65 AoV VTI: 0.15 AoV Pk Grad: 3.00 Aov Mn Grad: 2.00 SULEMA Cont.VTI: 4.15 AI Pk Lázaro: 4.06 AI Deuel: 3.14 LVOT LVOT Pk Lázaro: 0.66 LVOT Mn Lázaro: 0.52 LVOT VTI: 0.12 LVOT Pk Grad: 2.00 LVOT Mn Grad: 1.00 LVOT Diam: 2.60 LVOT Area: 5.31 Diastolic Function MV Pk E: 0.99 Right Ventricle TAPSE (mm): 10.70 TVS' Lázaro: 9.32 Tricuspid Valve TR Pk Lázaro: 2.93 TR Pk Grad: 34.00 RA Press: 3.00 RVSP: 37.00 Great Vessels Aorta Sinus of Valsalva: 3.50 2.0-3.5 cm Ao Asc: 3.40 2.1-3.4 cm Pulmonary Valve PV Pk Lázaro: 0.61 Peak PV Grad: 1.00 Updated in Other Vendor System with Status of Final Garrett Medrano MD electronically signed on 07/02/2025 11:47:33 AM with status of Final
--- NOTE | 2025-07-01 21:57 | ECG_ITS ---
Test Reason : cp Blood Pressure : */* mmHG Vent. Rate : 101 BPM Atrial Rate : * BPM P-R Int : * ms QRS Dur : 98 ms QT Int : 324 ms P-R-T Axes : * -48 4 degrees QTcB Int : 420 ms Poor data quality Possible Sinus tachycardia with occasional Premature ventricular complexes Left axis deviation Inferior infarct (cited on or before 01-Jul-2025) Anterior infarct (cited on or before 28-Aug-2008) Abnormal ECG When compared with ECG of 01-Jul-2025 21:53, Serial changes of Inferior infarct Present Referred By: Aneesh Roman Electronically Signed By: SERAFIN QUIROS MD
--- NOTE | 2025-07-01 21:59 | ECG_ITS ---
Test Reason : cp Blood Pressure : */* mmHG Vent. Rate : 103 BPM Atrial Rate : 103 BPM P-R Int : 230 ms QRS Dur : 112 ms QT Int : 352 ms P-R-T Axes : * -51 0 degrees QTcB Int : 461 ms Sinus tachycardia with 1st degree A-V block Left axis deviation Minimal voltage criteria for LVH, may be normal variant ( Kenvir product ) Inferior infarct (cited on or before 01-Jul-2025) Anteroseptal infarct (cited on or before 28-Aug-2008) Abnormal ECG When compared with ECG of 01-Jul-2025 21:57, Serial changes of Inferior infarct Present Referred By: Aneesh Roman Electronically Signed By: SERAFIN QUIROS MD
[2025-07-01 23:20] LABS: Troponin-I High Sensitivity 321.7 ng/L (<3.5-35.0)
--- NOTE | 2025-07-02 00:54 | PC.NURSE ---
Care assumed at 1930 to 2300 as patient arrived to room from ED at 1930. [place] [facility] [place] utilized as patient [place]ian speaking only. Little information obtained as patient was very vague and did not respond verbally to questions. Patient alert, speaking in sentences to self but not to command. Unable to assess motor tracking as unable to assess patient vision and hearing capabilities at this point in time. Dr. Troy at bedside and assisted in assessing patient. Provider speaks B[place] and patient did respond by saying his name and that he is in hospital but no further information provided by patient. Chart reviewed by Dr. Troy , 12 lead EKG obtained and reviewed by provider, Troponin obtained and resulted in critical at 321.[address] Troy was made aware. Patient failed dysphagia screening as when provided a sip of water produced a wet moist cough. Dr. Troy notified and patient made NPO pending Swallow screening. Patient has chronic bilateral buttocks wounds with denuded skin present. Barrier cream and foam dressings on and wound consult placed. Isoflex air loss attached to the bed and patient repositioned with pillows. Heels elevated. HOB elevated at 45 degrees. VSS. Refer to EMAR for documentation
[2025-07-02 03:25] VITALS: BP 120/59; PULSE 81; RESP 18; TEMP 36.3; O2SAT 99
[2025-07-02 06:46] LABS: MANUAL DIFF FLAG NO
[2025-07-02 07:00] LABS: Hematocrit 34.5 % (42.0-52.0); Hemoglobin 11.0 g/dl (14.0-18.0); Imm Gran Abs Auto 0.07 X10*3/uL (0.00-0.03); Imm Gran Pct Auto 0.6 % (0.0-0.4); Lymphocytes Absolute Auto 1.3 X10*3/uL (1.2-4.9); Mean Corpuscular HGB Conc 31.9 g/dl (31.0-36.0); Mean Corpuscular Hemoglobin 29.1 pg (27.0-33.0); Mean Corpuscular Volume 91.3 fL (80.0-98.0); NRBC Abs Auto 0.000 X10*3/uL (0.0-0.012); NRBC Pct Auto 0.0 /100WBC (0.0-0.2); Platelet Count 193 X10*3/uL (160-400); Red Blood Count 3.78 X10*6/uL (4.60-5.80); White Blood Count 11.8 X10*3/uL (4.8-10.8)
[2025-07-02 07:08] LABS: Anion Gap 10 (12-20); Blood Urea Nitrogen 22 mg/dL (9-16); Calcium 8.6 mg/dL (8.4-10.2); Carbon Dioxide 21 mmol/L (22-29); Chloride 113 mmol/L (96-108); Creatinine Clr Calc Pharmacy 74.4; Estimated Glomerular Filt Rate > 60; Potassium 3.5 mmol/L (3.3-5.1); Sodium 140 mmol/L (135-145)
[2025-07-02 07:37] VITALS: BP 127/60; PULSE 89; RESP 20; TEMP 36.1; O2SAT 94
[2025-07-02] MEDS: Lactated Ringers 1,000 ML 100 ML IVCONT ×2 (08:36→18:15)
--- NOTE | 2025-07-02 10:43 | P.CONCA_ITS ---
History of Present Illness History of Present Illness Date of Service: 07/02/25 Requesting physician: Aneesh Roman Consult reason: troponin elevation and other (Cardiac arrhythmias) Chief complaint: UTI Narrative: I was consulted to see Rico in cardiology consultation today. History was obtained mainly from the chart. Patient does not provide much history given his cognitive dysfunction. Patient is 85-year-old male who is at a [facility] came to emergency room after unwitnessed fall. Patient has history of dementia with prior stroke with minimal functionality. Patient in the emergency room was noted to be hypothermic and tachycardic and subsequently noted to have leukocytosis and sepsis syndrome related to UTI. Patient in the emergency room was noted to be tachycardic and EKGs was very poor with regular tachycardia suspicious for SVT. Patient was given IV adenosine multiple times and subsequent conversion to sinus tachycardia. Again there was no reported history of chest pain or palpitations. He has remained hemodynamically stable. Troponins were drawn for unclear reason again no chest pain and they her gradually rising consistent with myocardial injury. Review of Systems 2 Review of Systems: Yes Unobtainable due to mental status PMFSH Past Medical History Medical History (Updated 07/02/25 @ 10:47 by Garrett Medrano MD) Stroke Dementia Social History Social History Household Members: Other Housing: Assisted Do you presently have visiting nurse or other home services: Yes Patient Tobacco Use Status: Never used Tobacco Meds Allergies Allergy/AdvReac Type Severity Reaction Status Date / Time ibuprofen (From Motrin) Allergy Severe ANGIOEDEMA Verified 07/01/25 03:37 Active Medications: Current Medications Acetaminophen (Acetaminophen 325 Mg Tablet) 650 mg PO Q6H PRN PRN Reason: Pain, Mild 1-3,fever,headache Apixaban (Apixaban 5 Mg Tablet) 5 mg PO BID [facility] Last Admin: 07/02/25 07:57 Dose: Not Given Ascorbic Acid (Ascorbic Acid 500 Mg Tablet) 500 mg PO DAILY [facility] Last Admin: 07/02/25 07:57 Dose: Not Given Aspirin (Aspirin 81 Mg Tab.Chew) 81 mg PO DAILY [facility] Last Admin: 07/02/25 07:57 Dose: Not Given Bisacodyl (Bisacodyl 10 Mg Supp.Rect) 10 mg NV DAILY PRN PRN Reason: Constipation Calcium Carbonate (Calcium Carbonate 750 Mg Tab.Chew) 750 mg PO Q4H PRN PRN Reason: Heartburn Ferrous Sulfate (Ferrous Sulfate 324 Mg Tablet.Dr) 324 mg PO DAILY [facility] Last Admin: 07/02/25 07:57 Dose: Not Given Lactated Ringer's (Lr) 1,000 mls @ 100 mls/hr IVCONT .Q10H [facility] Last Admin: 07/02/25 08:36 Dose: 100 mls/hr Levothyroxine Sodium (Levothyroxine Sodium 100 Mcg Tablet) 100 mcg PO DAILY@0600 [facility] Last Admin: 07/02/25 05:35 Dose: Not Given Magnesium Hydroxide (Milk Of Magnesia 30 Ml Oral.Susp) 30 ml PO DAILY PRN PRN Reason: Constipation Melatonin (Melatonin 3 Mg Tablet) 6 mg PO BEDTIME PRN PRN Reason: Insomnia Metoprolol Tartrate (Metoprolol Tartrate 25 Mg Tablet) 25 mg PO Q6H [facility]; Protocol Last Admin: 07/02/25 07:56 Dose: Not Given Metoprolol Tartrate (Metoprolol Tartrate 5 Mg/5 Ml Vial) 5 mg IVPUSH Q6H PRN; Protocol PRN Reason: HR > 110 bpm sustaining Multivitamins/Vitamin C (Multivitamin Tablet) 1 tab PO DAILY [facility] Last Admin: 07/02/25 07:57 Dose: Not Given Senna (Sennosides 8.6 Mg Tablet) 17.2 mg PO BEDTIME [facility] Last Admin: 07/01/25 22:42 Dose: Not Given Sodium Chloride (0.9 % Sodium Chloride Flush 3 Ml Syringe) 3 ml IVFLUSH QSHIFT [facility] Last Admin: 07/02/25 07:56 Dose: Not Given Home Medications ?Medication ?Instructions ?Recorded ?Confirmed ?Last Taken ?Type acetaminophen 325 mg tablet 650 mg PO Q4H PRN pain/fev er 07/01/25 07/01/25 Unknown History (Tylenol) acetaminophen 650 mg rectal 650 mg NV Q4H PRN general 07/01/25 07/01/25 Unknown History suppository discomfort/fever ascorbic acid (vitamin C) 500 mg 500 mg PO DAILY 07/0107/01/25 06/30/25 History tablet aspirin 81 mg chewable tablet 81 mg PO DAILY 07/01/25 07/01/25 06/30/25 History bisacodyl 10 mg rectal suppository 10 mg NV DAILY PRN Constipation 07/01/25 07/01/25 Unknown History ferrous sulfate 324 mg (65 mg 324 mg PO DAILY 07/01/25 07/01/25 06/30/25 History iron) tablet,delayed release levothyroxine 100 mcg tablet 100 mcg PO DAILY@0600 07/01/25 06/30/25 History magnesium hydroxide 400 mg/5 mL 30 ml PO DAILY PRN Con stipation 07/01/25 07/01/25 Unknown History oral suspension (Milk of Magnesia) multivitamin 1 tab PO DAILY 07/01/2506/1906/30/25 History ondansetron HCl 4 mg tablet 4 mg PO Q8H PRN Nausea 07/01/25 Unknown History sennosides 8.6 mg tablet (senna) 17.2 mg PO BEDTIME 07/01/25 06/30/25 History sodium phosphates 19 gram-7 118 ml NV DAILY PRN Consti pation 07/01/25 07/01/25 Unknown History gram/118 mL enema (Fleet Enema) sulfamethoxazole 800 1 tab PO DAILY PRN catheter change 07/01/25 07/01/25 Unknown History mg-trimethoprim 160 mg tablet (Bactrim DS) Physical Exam 2 Vital Signs: Vital Signs: Last Vital Signs Temp 97.0 F 07/02/25 07:37 Pulse 89 07/02/25 07:37 Resp 20 07/02/25 07:37 BP 127/60 07/02/25 07:37 Pulse Ox 94 07/02/25 07:37 O2 Del Method Nasal Cannula 07/02/25 07:37 O2 Flow Rate 2 07/02/25 07:37 BMI result Body Mass Index 32.7 Const: General: no acute distress and other (Somnolent) Nutritional Appearance: average body habitus HEENT: Head: Yes normocephalic and Yes atraumatic Neck: Neck: Yes trachea midline, Yes supple and Yes no JVD Resp: Effort & Inspection: decreased respiratory effort Auscultation: no rales, no wheezes and diminished lung sounds Cardio: Jugular venous distension: no JVD Rate: regular rate Rhythm: r egular rhythm Heart sounds: S1 normal heart sound present, S2 normal heart sound present, no click, no gallops and Murmur heart sound present systolic GI: Auscultation: normal bowel sounds Skin: General skin exam: no rashes or lesions noted Neuro: General: other (Could not evaluate) Objective Labs and Meds 07/02/25 06:25 07/02/25 06:25 Lab results: Laboratory Results - last 24 hr 07/01/25 07/01/25 07/01/25 03:50 10:18 22:44 WBC RBC Hgb Hct MCV MCH MCHC RDW Plt Count MPV Immature Gran % (Auto) Neut % (Auto) Lymph % (Auto) [place] % (Auto) Eos % (Auto) Baso % (Auto) Lymph # (Auto) [place] # (Auto) Eos # (Auto) Baso # (Auto) Abs Immat Gran (auto) Absolute Neuts (auto) Absolute Nucleated RBC Nucleated RBC % (auto) Sodium Potassium Chloride Carbon Dioxide Anion Gap BUN Creatinine Estim Creat Clear Calc Estimated GFR Random Glucose Calcium Troponin I High Sens 232.7 H* D 321.7 H* TSH 2.49 07/02/25 06:25 WBC 11.8 H RBC 3.78 L Hgb 11.0 L Hct 34.5 L MCV 91.3 MCH 29.1 MCHC 31.9 RDW 14.7 Plt Count 193 D MPV 9.6 Immature Gran % (Auto) 0.6 H Neut % (Auto) 76.1 H Lymph % (Auto) 11.3 L [place] % (Auto) 5.7 Eos % (Auto) 4.9 H Baso % (Auto) 1.4 Lymph # (Auto) 1.3 [place] # (Auto) 0.7 Eos # (Auto) 0.6 H Baso # (Auto) 0.2 Abs Immat Gran (auto) 0.07 H Absolute Neuts (auto) 9.0 H Absolute Nucleated RBC 0.000 Nucleated RBC % (auto) 0.0 Sodium 140 Potassium 3.5 Chloride 113 H Carbon Dioxide 21 L Anion Gap 10 L BUN 22 H Creatinine 0.90 Estim Creat Clear Calc 74.4 Estimated GFR > 60 Random Glucose 110 Calcium 8.6 D Troponin I High Sens TSH EKGs of poor quality shows sinus tachycardia with PACs. Monitoring shows sinus rhythm to sinus tachycardia with frequent short runs of atrial arrhythmias. Assessment and Plan (1) Cardiac arrhythmia: Status: Acute Cardiac arrhythmias in this elderly gentleman is most likely related to his underlying acute medical illness triggering his cardiac arrhythmias. Received Adenocard yesterday converted to sinus rhythm. Difficult to assess arrhythmias but appears to be could be SVT also atrial flutter can not be ruled out. He is having short runs of PACs which could represent atrial fibrillation. Her management in his case would be conservative and medical. Would prescribe him metoprolol [id number] if he can tolerated as he is not currently having any p.o. intake. Will give him metoprolol 1.25 mg IV push q.6 hours. Avoidance of stimulants was discussed. (2) Troponin level elevated: Status: Acute Elevated troponin secondary to demand ischemia. Most likely related to elevated heart rate as well as underlying acute medical illness with sepsis. Myocardial injury secondary with the same. Underlying coronary disease can not be ruled out given his advanced age highly likely. Would treat him into aspirin as well as rate control as above. Further workup is indicated. Continue supportive care. Will sign of the case. Thank you for allowing me to partake in his care Procedures Date of Service Date of Service: 07/02/25
[2025-07-02 11:59] VITALS: BP 151/66; PULSE 83; RESP 20; TEMP 37.1; O2SAT 98
--- NOTE | 2025-07-02 13:05 | MHC.CM.PN ---
IMM 07/02/25, Pt. is a LTC resident of [facility] at [place]. He is SSO. He is non ambulatory, uses a lift. He sees Dr. Valdez in [place] for Kidneys. DCP is return to [facility] via BLS. CM to follow for DC needs.
--- NOTE | 2025-07-02 13:23 | HO.PM.IMPN ---
Subjective Subjective Date of Service: 07/02/25 Interval History: No complaints today. Patient is sleepy and tired overall Unable to answer questions clearly Review of Systems Review of Systems: Yes Unobtainable due to mental condition and Unobtainable due to mental status Physical Exam Exam: Exam: General: A&O x0, comfortable, no pain Cardiac: S1, S2 auscultated with no S3/4, no MRG. Well perfused. Regularly regular Respiratory: Decreased inspiratory and expiratory breath sounds bilaterally especially at the bases, without wheezing, no respiratory distress. No respiratory distress GI/ : No abdominal pain on palpation, no masses or distentions. MSK: Normal ambulation without pain at bony prominences or musculature Skin: skin changes involving the buttocks/ischium, scrotum and penis, erythematous, thin skin Neurological: Normal neurological examination on overview, without obvious CN II-XII abnormalities. Vital Signs: Vital Signs: Last Vital Signs Temp 98.7 F 07/02/25 11:59 Pulse 83 07/02/25 11:59 Resp 20 07/02/25 11:59 BP 151/66 H 07/02/25 11:59 Pulse Ox 98 07/02/25 11:59 O2 Del Method Nasal Cannula 07/02/25 11:59 O2 Flow Rate 2 07/02/25 11:59 BMI result Body Mass Index 32.7 Objective Data Active Medications Acetaminophen (Acetaminophen 325 Mg Tablet) 650 mg PO Q6H PRN PRN Reason: Pain, Mild 1-3,fever,headache Apixaban (Apixaban 5 Mg Tablet) 5 mg PO BID [facility] Last Admin: 07/02/25 07:57 Dose: Not Given Documented By: FREDA Non-Admin Reason: NPO Ascorbic Acid (Ascorbic Acid 500 Mg Tablet) 500 mg PO DAILY [facility] Last Admin: 07/02/25 07:57 Dose: Not Given Documented By: FREDA Non-Admin Reason: NPO Aspirin (Aspirin 81 Mg Tab.Chew) 81 mg PO DAILY [facility] Last Admin: 07/02/25 07:57 Dose: Not Given Documented By: FREDA Non-Admin Reason: NPO Bisacodyl (Bisacodyl 10 Mg Supp.Rect) 10 mg [place] DAILY PRN PRN Reason: Constipation Calcium Carbonate (Calcium Carbonate 750 Mg Tab.Chew) 750 mg PO Q4H PRN PRN Reason: Heartburn Ferrous Sulfate (Ferrous Sulfate 324 Mg Tablet.Dr) 324 mg PO DAILY [facility] Last Admin: 07/02/25 07:57 Dose: Not Given Documented By: FREDA Non-Admin Reason: NPO Lactated Ringer's (Lr) 1,000 mls @ 100 mls/hr IVCONT .Q10H [facility] Last Admin: 07/02/25 08:36 Dose: 100 mls/hr Documented By: FREDA Levothyroxine Sodium (Levothyroxine Sodium 100 Mcg Tablet) 100 mcg PO DAILY@0600 [facility] Last Admin: 07/02/25 05:35 Dose: Not Given Documented By: PANCHO Non-Admin Reason: NPO Magnesium Hydroxide (Milk Of Magnesia 30 Ml Oral.Susp) 30 ml PO DAILY PRN PRN Reason: Constipation Melatonin (Melatonin 3 Mg Tablet) 6 mg PO BEDTIME PRN PRN Reason: Insomnia Metoprolol Tartrate (Metoprolol Tartrate 25 Mg Tablet) 25 mg PO Q6H [facility]; Protocol Last Admin: 07/02/25 07:56 Dose: Not Given Documented By: FREDA Non-Admin Reason: NPO Metoprolol Tartrate (Metoprolol Tartrate 5 Mg/5 Ml Vial) 5 mg IVPUSH Q6H PRN; Protocol PRN Reason: HR > 110 bpm sustaining Multivitamins/Vitamin C (Multivitamin Tablet) 1 tab PO DAILY [facility] Last Admin: 07/02/25 07:57 Dose: Not Given Documented By: FREDA Non-Admin Reason: NPO Senna (Sennosides 8.6 Mg Tablet) 17.2 mg PO BEDTIME [facility] Last Admin: 07/01/25 22:42 Dose: Not Given Documented By: MATT Non-Admin Reason: Inability to swallow safely Sodium Chloride (0.9 % Sodium Chloride Flush 3 Ml Syringe) 3 ml IVFLUSH QSHIFT [facility] Last Admin: 07/02/25 07:56 Dose: Not Given Documented By: FREDA Non-Admin Reason: IV Running Labs 07/02/25 06:25 07/02/25 06:25 Labs: Laboratory Results - last 24 hr 07/01/25 07/02/25 22:44 06:25 MCV 91.3 MCH 29.1 MCHC 31.9 RDW 14.7 Plt Count 193 D MPV 9.6 Immature Gran % (Auto) 0.6 H Neut % (Auto) 76.1 H Lymph % (Auto) 11.3 L [place] % (Auto) 5.7 Eos % (Auto) 4.9 H Baso % (Auto) 1.4 Lymph # (Auto) 1.3 [place] # (Auto) 0.7 Eos # (Auto) 0.6 H Baso # (Auto) 0.2 Abs Immat Gran (auto) 0.07 H Absolute Neuts (auto) 9.0 H Absolute Nucleated RBC 0.000 Nucleated RBC % (auto) 0.0 Anion Gap 10 L Estim Creat Clear Calc 74.4 Estimated GFR > 60 Random Glucose 110 Calcium 8.6 D Troponin I High Sens 321.7 H* Microbiology Microbiology Results: Microbiology 07/01/25 04:42 Blood Culture - Preliminary Blood - Venous No growth after 24 hours. 07/01/25 04:42 Blood Culture - Preliminary Blood - Venous No growth after 24 hours. Assessment and Plan (1) Troponin level elevated: Status: Acute (2) Cardiac arrhythmia: Status: Acute (3) Atrial fibrillation with RVR: Status: Acute (4) Urinary tract infection: Status: Acute (5) Sepsis: Status: Acute (6) Decubitus ulcer of sacral region: Status: Acute Plan 85-year-old male, long-term care resident with history of chronic suprapubic catheter, presumed dementia (unclear per family), prior ischaemic CVA, hypothyroidism, and limited mobility, admitted after unwitnessed fall, found to have sepsis secondary to complicated UTI in setting of indwelling suprapubic catheter, new-onset atrial arrhythmia (afib/flutter), decubitus ulcers, and demand NSTEMI; currently hemodynamically stable on the medical floor, receiving IV antibiotics and cardiac monitoring. Sepsis secondary to UTI (chronic suprapubic catheter) Course:?Presented with fever, leukocytosis, and positive urinalysis (WBC >50, bacteria 4+, nitrite +, LE +). No severe sepsis/shock. Started on IV ceftriaxone. Blood and urine cultures pending.? Plan: Continue IV ceftriaxone; adjust per culture/sensitivity results. Monitor for clinical improvement: vitals, WBC, mental status. Daily labs: CBC, BMP. Maintain suprapubic catheter care; monitor for local infection. Infectious Disease consult if no improvement or resistant organism. New-onset atrial arrhythmia (afib/flutter/SVT) Course:?Presented with tachycardia (HR up to 146), initially unclear rhythm, received adenosine x2 and IV metoprolol with HR improvement. Cardiology consulted; EKGs show sinus tachycardia with PACs, short runs of atrial arrhythmias. Started on metoprolol and apixaban.? Plan: Continue metoprolol tartrate 25 mg PO q6h (IV if NPO or unable to tolerate PO). Continue apixaban 5 mg PO BID for stroke prevention. Cardiac monitoring for arrhythmia recurrence. Avoid stimulants. Repeat EKGs as indicated. Echocardiogram completed (mild-moderate LV dysfunction, limited study). Monitor for hypotension or bradycardia. Cardiology reccs greatly appreciated Type 2 NSTEMI Course:?Troponin peaked at 321.7 ng/L, no chest pain or ischemic symptoms, attributed to demand ischemia from sepsis and tachyarrhythmia. Echo: mild-moderate LV dysfunction, no clear wall motion abnormality.? Plan: Continue aspirin 81 mg daily. Continue rate control (metoprolol). Monitor for new/worsening cardiac symptoms. No evidence of acute coronary intervention at this time. Decubitus ulcers (ischial/buttocks/scrotum, stage II) Course:?Chronic wounds, present on admission, reportedly improved from baseline. Noted noncompliance with repositioning at SNF. No evidence of deep tissue infection or osteomyelitis on imaging.? Plan: Continue local wound care per protocol. Reposition every 2 hours. Wound care consult for ongoing management. Monitor for signs of infection (erythema, drainage, fever). Optimize nutrition. Hypothermia Course:?Hypothermic on arrival (96.5?F), likely secondary to sepsis. Normothermic after Aicha Hugger.? Plan: Continue to monitor temperature. Reapply warming measures if temp <36?C. Hypothyroidism Course:?On home levothyroxine 100 mcg daily. TSH within normal limits.? Plan: Continue levothyroxine 100 mcg PO daily. Monitor TSH if clinical status changes. Anemia of chronic disease Course:?Hgb 11.0 g/dL, stable, likely multifactorial (chronic disease, possible CKD).? Plan: Monitor CBC. Iron studies if anemia worsens. Continue iron supplementation. Chronic suprapubic catheter/urinary retention Course:?Catheter in place, scant purulent material, no surrounding erythema.? Plan: Maintain catheter care and hygiene. Monitor for signs of local infection. Urology consult placed Incidental right renal mass (1.1 cm, enhancing) Course:?Found on CT, no acute intervention required.? Plan: Outpatient follow-up with urology. Schedule nonemergent CT or MRI renal mass protocol after discharge. History of stroke/dementia Course:?No acute neurologic deficits on exam. Family disputes prior diagnosis of dementia/stroke.? Plan: Continue aspirin 81 mg daily. Monitor for new neurologic changes. Clarify history with SNF and family. Constipation (on bowel regimen) Course:?Bedbound, on multiple PRN and scheduled agents.? Plan: Continue bowel regimen (senna, bisacodyl, magnesium hydroxide, PRN enemas). Monitor for bowel movements daily. Quality Metrics VTE Prophylaxis: Apixaban Code Status: Full code (confirmed with family) Diet:?NPO currently - APPLICATION SERVICES MANAGER ordered Total time managing care of this patient today: 45 minutes. Quality Stroke Does the patient have a stroke diagnosis?: No VTE Prior VTE?: No VTE Risk Level:: Medical - moderate - high VTE Device Contraindication: N/A - Device Ordered VTE Drug Contraindication: N/A - Med Ordered
[2025-07-02 15:47] VITALS: BP 169/70; PULSE 89; RESP 20; TEMP 37.6; O2SAT 99
[2025-07-02 19:10] VITALS: BP 122/57; PULSE 87; RESP 16; TEMP 36.6; O2SAT 97
[2025-07-02 23:09] VITALS: BP 136/64; PULSE 92; RESP 16; TEMP 36.4; O2SAT 95
[2025-07-03 03:23] VITALS: BP 138/59; PULSE 95; RESP 16; TEMP 37.3; O2SAT 93
[2025-07-03] MEDS: Lactated Ringers 1,000 ML 100 ML IVCONT (04:30)
[2025-07-03 07:23] VITALS: BP 141/65; PULSE 96; RESP 16; TEMP 36.6; O2SAT 94
[2025-07-03 07:49] LABS: Glucose, Whole Blood 71 mg/dL (60-115)
--- NOTE | 2025-07-03 08:26 | PM.UROCN ---
History of Present Illness Consult details Consult date: 07/03/25 Narrative: CC: Chronic Tomlinson catheter suprapubic 85-year-old Estonian-speaking senior living resident Present to emergency department with unwitnessed fall Mental status changes although baseline history of dementia and prior stroke Has been bed-bound for a number of years Lab work significant for leukocytosis 11.2 UA performed - positive nitrite, large leuk esterase Difficult to determine with the this presentation represents chronic colonization of the Tomlinson catheter versus clinical urinary tract infection Microbiology - no growth to date on urine specimen Received IV ceftriaxone Incidental 1.1 cm enhancing right superior renal lesion Small stones right side Likely symptomatic UTI contributed to confusion and fall Continue conservative therapy with short course antibiotics Ongoing Tomlinson catheter management to be continued as already established No acute ongoing urologic issue Review of Systems Constitutional: Constitutional: Reports as per HPI and Reports no additional constitutional complaints Cardiovascular: Cardiovascular: Reports as per HPI and Reports no additional cardiovascular complaints Respiratory: Respiratory: Reports as per HPI and Reports no additional respiratory complaints Gastrointestinal: Gastrointestinal: Reports as per HPI and Reports no additional gastrointestinal complaints Genitourinary: Genitourinary: Reports as per HPI Musculoskeletal: Musculoskeletal: Reports no additional musculoskeletal complaints and Reports as per HPI Neurologic: Reports system reviewed and no additional complaints, except as documented and Reports as per HPI [facility] Past Medical History Medical History (Updated 07/03/25 @ 08:34 by Thomsa Foss MD) Stroke Dementia Social History Social History Household Members: Other Housing: Assisted Do you presently have visiting nurse or other home services: Yes Patient Tobacco Use Status: Never used Tobacco service: No Meds Allergies Allergy/AdvReac Type Severity Reaction Status Date / Time ibuprofen (From Motrin) Allergy Severe ANGIOEDEMA Verified 07/01/25 03:37 Active Medications: Current Medications Acetaminophen (Acetaminophen 325 Mg Tablet) 650 mg PO Q6H PRN PRN Reason: Pain, Mild 1-3,fever,headache Apixaban (Apixaban 5 Mg Tablet) 5 mg PO BID [facility] Last Admin: 07/02/25 21:48 Dose: Not Given Ascorbic Acid (Ascorbic Acid 500 Mg Tablet) 500 mg PO DAILY [facility] Last Admin: 07/02/25 07:57 Dose: Not Given Aspirin (Aspirin 81 Mg Tab.Chew) 81 mg PO DAILY [facility] Last Admin: 07/02/25 07:57 Dose: Not Given Bisacodyl (Bisacodyl 10 Mg Supp.Rect) 10 mg NV DAILY PRN PRN Reason: Constipation Calcium Carbonate (Calcium Carbonate 750 Mg Tab.Chew) 750 mg PO Q4H PRN PRN Reason: Heartburn Ferrous Sulfate (Ferrous Sulfate 324 Mg Tablet.Dr) 324 mg PO DAILY [facility] Last Admin: 07/02/25 07:57 Dose: Not Given Lactated Ringer's (Lr) 1,000 mls @ 100 mls/hr IVCONT .Q10H [facility] Last Admin: 07/03/25 04:30 Dose: 100 mls/hr Levothyroxine Sodium (Levothyroxine Sodium 100 Mcg Tablet) 100 mcg PO DAILY@0600 [facility] Last Admin: 07/03/25 04:33 Dose: Not Given Magnesium Hydroxide (Milk Of Magnesia 30 Ml Oral.Susp) 30 ml PO DAILY PRN PRN Reason: Constipation Melatonin (Melatonin 3 Mg Tablet) 6 mg PO BEDTIME PRN PRN Reason: Insomnia Metoprolol Tartrate (Metoprolol Tartrate 25 Mg Tablet) 25 mg PO Q6H [facility]; Protocol Last Admin: 07/03/25 01:43 Dose: Not Given Metoprolol Tartrate (Metoprolol Tartrate 5 Mg/5 Ml Vial) 5 mg IVPUSH Q6H PRN; Protocol PRN Reason: HR > 110 bpm sustaining Multivitamins/Vitamin C (Multivitamin Tablet) 1 tab PO DAILY [facility] Last Admin: 07/02/25 07:57 Dose: Not Given Senna (Sennosides 8.6 Mg Tablet) 17.2 mg PO BEDTIME [facility] Last Admin: 07/02/25 21:48 Dose: Not Given Sodium Chloride (0.9 % Sodium Chloride Flush 3 Ml Syringe) 3 ml IVFLUSH QSHIFT [facility] Last Admin: 07/02/25 21:51 Dose: Not Given Home Medications ?Medication ?Instructions ?Recorded ?Confirmed ?Last Taken ?Type acetaminophen 325 mg tablet 650 mg PO Q4H PRN pain/fever 07/01/25 07/01/25 Unknown History (Tylenol) acetaminophen 650 mg rectal 650 mg NV Q4H PRN general 07/01/25 07/01/25 Unknown History suppository discomfort/fever ascorbic acid (vitamin C) 500 mg 500 mg PO DAILY 07/01/25 07/01/25 06/30/25 History tablet aspirin 81 mg chewable tablet 81 mg PO DAILY 07/01/25 07/01/25 06/30/25 History bisacodyl 10 mg rectal suppository 10 mg NV DAILY PRN Constipation 07/01/25 07/01/25 Unknown History ferrous sulfate 324 mg (65 mg 324 mg PO DAILY 07/01/25 07/01/25 06/30/25 History iron) tablet,delayed release levothyroxine 100 mcg tablet 100 mcg PO DAILY@0600 07/01/25 07/01/25 06/30/25 History magnesium hydroxide 400 mg/5 mL 30 ml PO DAILY PRN Constipation 07/01/25 07/01/25 Unknown History oral suspension (Milk of Magnesia) multivitamin 1 tab PO DAILY 07/01/25 07/01/25 06/30/25 History ondansetron HCl 4 mg tablet 4 mg PO Q8H PRN Nausea 07/01/25 07/01/25 Unknown History sennosides 8.6 mg tablet (senna) 17.2 mg PO BEDTIME 07/01/25 07/01/25 06/30/25 History sodium phosphates 19 gram-7 118 ml NV DAILY PRN Constipation 07/01/25 07/01/25 Unknown History gram/118 mL enema (Fleet Enema) sulfamethoxazole 800 1 tab PO DAILY PRN catheter change 07/01/25 07/01/25 Unknown History mg-trimethoprim 160 mg tablet (Bactrim DS) Physical Exam Vital Signs: Vital Signs: Last Vital Signs Temp 98 F 07/03/25 07:23 Pulse 96 07/03/25 07:23 Resp 16 07/03/25 07:23 BP 141/65 H 07/03/25 07:23 Pulse Ox 94 07/03/25 07:23 O2 Del Method Nasal Cannula 07/03/25 07:23 O2 Flow Rate 1 07/03/25 07:23 BMI result Body Mass Index 32.7 Const: General: cooperative, healthy appearing, comfortable and no acute distress Orientation/consciousness: patient oriented x3 HEENT: Face and sinus: Yes normal facial exam Mouth: moist mucous membranes Neck: Neck: Yes normal visual inspection, Yes full ROM and Yes trachea midline Chest: Chest palpation & inspection: normal inspection of the chest Resp: Effort & Inspection: normal respiratory effort, able to speak in complete sentences and no respiratory distress GI: Inspection: Yes normal to inspection Back/Spine/Pelvis: Cervical Spine: normal cervical lordosis Thoracic/Lumbar Spine: thoracic and lumbar spine normal to inspection Skin: General skin exam: no rashes or lesions noted Neuro: General: patient oriented x3, tone normal and moves all extremities Extrem: General: Yes normal to inspection and Yes capillary refill normal Results Labs 07/02/25 06:25 07/02/25 06:25 Labs: Urine 07/01/25 Range/Units 04:41 Urine Color Yellow Urine Appearance Turbid Urine pH 7.0 (5.0-9.0) Ur Specific [place] 1.015 (1.005-1.025) Urine Protein 100 (2+) H (Neg-Trace) mg/dL Urine Glucose (UA) Negative (Negative) mg/dL All other labs normal. Assessment and Plan (1) UTI (urinary tract infection) due to urinary indwelling Tomlinson catheter: Status: Acute (2) Suprapubic catheter: Status: Acute Plan Short course antibiotics Continue established suprapubic Tomlinson catheter care Procedures Date of Service Date of Service: 07/03/25
[2025-07-03] MEDS: 0.9 % Sodium Chloride Flush 3 ML SYRINGE IVFLUSH ×3 (09:46→20:30)
[2025-07-03 10:14] LABS: Glucose, Whole Blood 116 mg/dL (60-115)
[2025-07-03] MEDS: Ferrous Sulfate 324 MG TABLET.DR PO (10:41)
[2025-07-03 11:15] VITALS: BP 135/62; PULSE 91; RESP 18; TEMP 36.2; O2SAT 95
--- NOTE | 2025-07-03 11:22 | MHC.CM.PN ---
HCP has been placed on chart; Agent is Niece/Danette.
--- NOTE | 2025-07-03 11:52 | MHC.SL.SWA ---
Speech Pathologist Impression: Mild dysphagia d/t slight dental misalignment, generalized weakness Risk of Aspiration Due to: Hx of CVA Generalized weakness Dysphasia Diet Status: NDD3 (chopped) with THIN liquids, aspiration precautions, 1:1 assist Liquid Consistency and Strategies for Safe Swallow: Liquid Intake Recommendation: Thin Liquid Intake Strategies: Solid Food Consistency: Dietary Recommendations: Chopped/Advanced (NDD3) Additional Modifications to Solid Foods: Oral Medication Intake: Crushed with Puree Please contact the pharmacy regarding appropriate crushable or liquid drug formulations that are available whenever modified delivery is recommended. Compensatory Strategies and Precautions to be Taken for Safe Swallow: Supervision While Eating and Drinking for Safe Swallow: Total Assistance (1:1) Foods to Avoid: Swallowing Recommended Treatments: Recommendation for Speech: Inpatient Speech Therapy Comment: Danish interpreters present during evaluation. Pt's oromotor function is within functional limits, as observed in ROM of lips, tongue and jaw at rest, reflexively and in single word speech production, though lower dentition slightly misaligned with upper teeth, slightly reduced occlusion. Pt unable to tolerate sitting upright d/t pain, allowed FORMING DEPARTMENT END FINDER to elevate HOB to70 degrees. Pt alert and cooperative, though unable to consistently follow simple commands in Danish d/t receptive aphasia. Oral phase of swallow adequate for containment, bolus formulation, anterior to posterior transit and trigger of pharyngeal swallow with solids, purees and thins. Timing and elevation of larynx WNL upon pharyngeal swallow, with occasional audible, gulping swallows. Lingual sweep post swallow consistent, with subsequent reflexive swallow. Pt took consecutive sips of thins by cup with efficient respiratory coordination. No overt s/s of aspiration with trials. Pt's expressive communication is limited to single word responses with clear voicing. Pt uses eye contact and facial expressions to adequately convey his attention and basic understanding of situation. RN and MD notified of recommended diet in person and via secure text. [employer]MING DEPARTMENT END FINDER to monitor pt PO tolerance as indicated. Recc NDD3 with thins, 1:1 assist, aspiration precautions, meds in puree. Frequency/Duration: Daily M-F Date Range for Service Req: Timeline to reassess: Document Management Specialist Clinican/Clinical Fellow: No Supervisory Statement: I have reviewed and agree with the student/clinical fellow's documentation: N/A Speech Language Pathologist: Jane Hernandez M.S., [facility]-FORMING DEPARTMENT END FINDER
[2025-07-03 12:22] VITALS: BMI 32.7
--- NOTE | 2025-07-03 12:25 | MHC.CLN ---
PT WITH INCREASED NUTRITION RISK R/T PRESSURE INJURY DIET NPO PENDING SWALLOW EVAL WHEN DIET TO ADVANCE, RECOMMEND ADDING ENSURE TID TO PROMOTE WOUND HEALING SUPPLEMENT TO PROVIDE 1050KCALS, 60G PROTEIN FOLLOWING FOR DIET ADVANCEMENT SEE FULL ASSESSMENT
--- NOTE | 2025-07-03 15:03 | P.PNIM_ITS ---
Subjective Subjective Date of Service: 07/03/25 Interval History: Asleep during initial evaluation No new complaints or issues to report Feels well overall Review of Systems Review of Systems: Yes Unobtainable due to mental condition and Unobtainable due to mental status Physical Exam 2 Exam: Exam: General: A&O x0, comfortable, no pain Cardiac: S1, S2 auscultated with no S3/4, no MRG. Well perfused. Regularly regular Respiratory: Decreased inspiratory and expiratory breath sounds bilaterally especially at the bases, without wheezing, no respiratory distress. No respiratory distress GI/ : No abdominal pain on palpation, no masses or distentions. MSK: Normal ambulation without pain at bony prominences or musculature Skin: skin changes involving the buttocks/ischium, scrotum and penis, erythematous, thin skin Neurological: Normal neurological examination on overview, without obvious CN II-XII abnormalities. Vital Signs: Vital Signs: Last Vital Signs Temp 97.2 F 07/03/25 11:15 Pulse 91 07/03/25 11:15 Resp 18 07/03/25 11:15 BP 135/62 07/03/25 11:15 Pulse Ox 95 07/03/25 11:15 O2 Del Method Nasal Cannula 07/03/25 11:15 O2 Flow Rate 1 07/03/25 11:15 BMI result Body Mass Index 32.7 Objective Data Active Medications Acetaminophen (Acetaminophen 325 Mg Tablet) 650 mg PO Q6H PRN PRN Reason: Pain, Mild 1-3,fever,headache Apixaban (Apixaban 5 Mg Tablet) 5 mg PO BID [facility] Last Admin: 07/03/25 10:41 Dose: 5 mg Documented By: TRINIDAD Ascorbic Acid (Ascorbic Acid 500 Mg Tablet) 500 mg PO DAILY [facility] Last Admin: 07/03/25 10:41 Dose: 500 mg Documented By: TRINIDAD Aspirin (Aspirin 81 Mg Tab.Chew) 81 mg PO DAILY [facility] Last Admin: 07/03/25 10:41 Dose: 81 mg Documented By: TRINIDAD Bisacodyl (Bisacodyl 10 Mg Supp.Rect) 10 mg AR DAILY PRN PRN Reason: Constipation Calcium Carbonate (Calcium Carbonate 750 Mg Tab.Chew) 750 mg PO Q4H PRN PRN Reason: Heartburn Ferrous Sulfate (Ferrous Sulfate 324 Mg Tablet.Dr) 324 mg PO DAILY [facility] Last Admin: 07/03/25 10:41 Dose: 324 mg Documented By: TRINIDAD Levothyroxine Sodium (Levothyroxine Sodium 100 Mcg Tablet) 100 mcg PO DAILY@0600 [facility] Last Admin: 07/03/25 04:33 Dose: Not Given Documented By: SOSA Non-Admin Reason: NPO Magnesium Hydroxide (Milk Of Magnesia 30 Ml Oral.Susp) 30 ml PO DAILY PRN PRN Reason: Constipation Melatonin (Melatonin 3 Mg Tablet) 6 mg PO BEDTIME PRN PRN Reason: Insomnia Metoprolol Tartrate (Metoprolol Tartrate 25 Mg Tablet) 25 mg PO Q6H [facility]; Protocol Last Admin: 07/03/25 10:41 Dose: 25 mg Documented By: TRINIDAD Metoprolol Tartrate (Metoprolol Tartrate 5 Mg/5 Ml Vial) 5 mg IVPUSH Q6H PRN; Protocol PRN Reason: HR > 110 bpm sustaining Multivitamins/Vitamin C (Multivitamin Tablet) 1 tab PO DAILY [facility] Last Admin: 07/03/25 10:41 Dose: 1 tab Documented By: TRINIDAD Senna (Sennosides 8.6 Mg Tablet) 17.2 mg PO BEDTIME [facility] Last Admin: 07/02/25 21:48 Dose: Not Given Documented By: SOSA Non-Admin Reason: NPO Sodium Chloride (0.9 % Sodium Chloride Flush 3 Ml Syringe) 3 ml IVFLUSH QSHIFT [facility] Last Admin: 07/03/25 09:46 Dose: 3 ml Documented By: TRINIDAD Labs 07/02/25 06:25 07/02/25 06:25 Labs: Laboratory Results - last 24 hr 07/03/25 07/03/25 07:44 10:11 POC Glucose 71 116 H Microbiology Microbiology Results: Microbiology 07/01/25 04:42 Blood Culture - Preliminary Blood - Venous No growth after 48 hours. 07/01/25 04:42 Blood Culture - Preliminary Blood - Venous No growth after 48 hours. 07/01/25 06:11 Urine Culture - Final Urine Other - Suprapubic Assessment and Plan (1) Troponin level elevated: Status: Acute (2) Cardiac arrhythmia: Status: Acute (3) Atrial fibrillation with RVR: Status: Acute (4) Suprapubic catheter: Status: Acute (5) Urinary tract infection: Status: Acute (6) UTI (urinary tract infection) due to urinary indwelling Tomlinson catheter: Status: Acute (7) Sepsis: Status: Acute (8) Decubitus ulcer of sacral region: Status: Acute Plan 85-year-old male, long-term care resident with history of chronic suprapubic catheter, presumed dementia (unclear per family), prior ischaemic CVA, hypothyroidism, and limited mobility, admitted after unwitnessed fall, found to have sepsis secondary to complicated UTI in setting of indwelling suprapubic catheter, new-onset atrial arrhythmia (afib/flutter), decubitus ulcers, and demand NSTEMI; currently hemodynamically stable on the medical floor, receiving IV antibiotics and cardiac monitoring. Sepsis secondary to UTI (chronic suprapubic catheter) Course:?Presented with fever, leukocytosis, and positive urinalysis (WBC >50, bacteria 4+, nitrite +, LE +). No severe sepsis/shock. Started on IV ceftriaxone. Blood and urine cultures pending.? Plan: * Continue IV ceftriaxone; adjust per culture/sensitivity results. * Monitor for clinical improvement: vitals, WBC, mental status. * Daily labs: CBC, BMP. * Maintain suprapubic catheter care; monitor for local infection. * Infectious Disease consult if no improvement or resistant organism. New-onset atrial arrhythmia (afib/flutter/SVT) Course:?Presented with tachycardia (HR up to 146), initially unclear rhythm, received adenosine x2 and IV metoprolol with HR improvement. Cardiology consulted; EKGs show sinus tachycardia with PACs, short runs of atrial arrhythmias. Started on metoprolol and apixaban.? Plan: * Continue metoprolol tartrate 25 mg PO q6h (IV if NPO or unable to tolerate PO). * Continue apixaban 5 mg PO BID for stroke prevention. * Cardiac monitoring for arrhythmia recurrence. * Avoid stimulants. * Repeat EKGs as indicated. * Echocardiogram completed (mild-moderate LV dysfunction, limited study). * Monitor for hypotension or bradycardia. * Cardiology reccs greatly appreciated Type 2 NSTEMI Course:?Troponin peaked at 321.7 ng/L, no chest pain or ischemic symptoms, attributed to demand ischemia from sepsis and tachyarrhythmia. Echo: mild- moderate LV dysfunction, no clear wall motion abnormality.? Plan: * Continue aspirin 81 mg daily. * Continue rate control (metoprolol). * Monitor for new/worsening cardiac symptoms. * No evidence of acute coronary intervention at this time. Decubitus ulcers (ischial/buttocks/scrotum, stage II) Course:?Chronic wounds, present on admission, reportedly improved from baseline. Noted noncompliance with repositioning at SNF. No evidence of deep tissue infection or osteomyelitis on imaging.? Plan: * Continue local wound care per protocol. * Reposition every 2 hours. * Wound care consult for ongoing management. * Monitor for signs of infection (erythema, drainage, fever). * Optimize nutrition. Hypothermia Course:?Hypothermic on arrival (96.5?F), likely secondary to sepsis. Normothermic after Aicha Hugger.? Plan: * Continue to monitor temperature. * Reapply warming measures if temp <36?C. Hypothyroidism Course:?On home levothyroxine 100 mcg daily. TSH within normal limits.? Plan: * Continue levothyroxine 100 mcg PO daily. * Monitor TSH if clinical status changes. Anemia of chronic disease Course:?Hgb 11.0 g/dL, stable, likely multifactorial (chronic disease, possible CKD).? Plan: * Monitor CBC. * Iron studies if anemia worsens. * Continue iron supplementation. Chronic suprapubic catheter/urinary retention Course:?Catheter in place, scant purulent material, no surrounding erythema.? Plan: * Maintain catheter care and hygiene. * Monitor for signs of local infection. * Urology consult placed Incidental right renal mass (1.1 cm, enhancing) Course:?Found on CT, no acute intervention required.? Plan: * Outpatient follow-up with urology. * Schedule nonemergent CT or MRI renal mass protocol after discharge. History of stroke/dementia Course:?No acute neurologic deficits on exam. Family disputes prior diagnosis of dementia/stroke.? Plan: * Continue aspirin 81 mg daily. * Monitor for new neurologic changes. * Clarify history with SNF and family. Constipation (on bowel regimen) Course:?Bedbound, on multiple PRN and scheduled agents.? Plan: * Continue bowel regimen (senna, bisacodyl, magnesium hydroxide, PRN enemas). * Monitor for bowel movements daily. Quality Metrics * VTE Prophylaxis: Apixaban * Code Status: Full code (confirmed with family) * Diet:?regular diet - NDD3, 1:1 feeds, meds crushed with applesauce Quality Stroke Does the patient have a stroke diagnosis?: No VTE Prior VTE?: No VTE Risk Level:: Medical - moderate - high VTE Device Contraindication: N/A - Device Ordered VTE Drug Contraindication: N/A - Med Ordered
--- NOTE | 2025-07-03 15:12 | HO.WOUND ---
Wound Consult: Initial 85yr old?male admitted to [facility] on 07/01/25 - See progress notes and H&P for detailed history.? Wound consult placed for Sacrum, Ischium, buttock, and scrotum.? Patient agreeable to assessment and photo documentation.?Patient is note to be a contracted to his legs. Sacrococcygeal (Sacrum Coccyx and Buttock) all with significant prior skin injury. Severe MASD along with Suspected PI and skin changes. Overall the tissue at this time appears to have isolated areas of full thickness pressure injury. No history available unclear if this is stage 4 resurfacing or stage 3 resurfacing. Given lack of historical details will stage as stage 3 PI POA. The left ischium is noted for similar tissue noted in photos will be captured as Stage 3 PI POA. Sacrum and Left Ischium Etiology: ?Stage 3 Pressure Injury Present on Admission Wound Bed: red moist friable tissue Drainage / Odor: sanguineous Edges: ? irregular and unattached / rolled [place] wound: ?Severe MASD No Induration, Fluctuance or Warmth noted Pain: denies Goals of Treatment: ? Triad and off loading Left Lateral Ankle - Scar tissue noted. Intact at this time. Evidence of old PI injury. Left Heel - Red pink blanchable tissue, intact boggy - heel boot protector applied - concern for developing injury. Right Heel - [place] red intact blanchable tissue - heel boot protector applied RightShin - Irregular skin lesion noted - dry stable thicken tissue vs scab noted - no topical interventions needed at this time. Scrotum, Penis and Groin noted for healed severe chronic MASD. Barrier cream in place. Recommendations: 1. Turn and Reposition every 2 hours and as needed for patient comfort.? Use pillows or wedges to support off loading positions. 2. Off Load all bony prominences with use of pillows and heel boots if needed.? Apply Preventative foams where needed. ? 3. Monitor for incontinence and moisture control, use barrier creams when needed for prevention and treatment. 4. Provide adequate and supplemental nutrition.? 5. Continue low air loss mattress. 6. When applicable maintain blood glucose levels per Providers order. Sacrum, buttock, ischium and perineal area - Off Load Pressure with Q2 hr turns and use of pillows - Cleanse with PH balance spray or wipes, pat dry. ?Apply thin layer of Triad to wound bed - only pat and dab no scrub and rub when soiling occurs. Reapply thin layer PRN after each episode of incontinence. Bilateral Heels - Elevate heels off of bed surface with pillows.? Float heels off of pillows or Heel Boot Protectors.? Apply skin prep allow to dry.? Apply heel foam dressings, peel back and assess Q shift and change every 3 days and PRN. Re-consult wound care Nurse for wound deterioration or wound changes.
[2025-07-03 15:52] VITALS: BP 159/72; PULSE 86; RESP 18; TEMP 36.8; O2SAT 95
[2025-07-03 19:23] VITALS: BP 137/60; PULSE 81; RESP 17; TEMP 36.8; O2SAT 96
[2025-07-03 23:01] VITALS: BP 123/60; PULSE 75; RESP 18; TEMP 36.9; O2SAT 92
[2025-07-04] VITALS (7 sets, daily range): BP systolic 113–138; BP diastolic 53–78; PULSE 72–79; RESP 16–20; TEMP 36.6–37.2; O2SAT 93–99
[2025-07-04] MEDS: Ferrous Sulfate 324 MG TABLET.DR PO (08:22)
[2025-07-04] MEDS: 0.9 % Sodium Chloride Flush 3 ML SYRINGE IVFLUSH ×2 (08:25→21:12)
--- NOTE | 2025-07-04 09:09 | P.PNIM_ITS ---
Subjective Subjective Date of Service: 07/04/25 Interval History: Patient seen examined at bedside this morning, patient being treated for sepsis secondary to UTI, urine culture contaminated, we will continue to treat with IV ceftriaxone. Patient at this time pleasantly demented. Review of Systems Review of Systems: Yes Unobtainable due to mental status Physical Exam 2 Exam: Exam: General: A&O x0, comfortable, no pain Cardiac: S1, S2 auscultated with no S3/4, no MRG. Well perfused. Regularly regular Respiratory: Decreased inspiratory and expiratory breath sounds bilaterally especially at the bases, without wheezing, no respiratory distress. No respiratory distress GI/ : No abdominal pain on palpation, no masses or distentions. MSK: moving extremities Skin: senile purpura, decubitus ulcer Neurological: Normal neurological examination on overview. Vital Signs: Vital Signs: Last Vital Signs Temp 98.6 F 07/04/25 07:31 Pulse 75 07/04/25 07:31 Resp 18 07/04/25 07:31 BP 138/63 07/04/25 07:31 Pulse Ox 99 07/04/25 07:31 O2 Del Method Nasal Cannula 07/04/25 07:31 O2 Flow Rate 3 07/04/25 07:31 BMI result Body Mass Index 32.7 Objective Data Active Medications Acetaminophen (Acetaminophen 325 Mg Tablet) 650 mg PO Q6H PRN PRN Reason: Pain, Mild 1-3,fever,headache Last Admin: 07/03/25 15:51 Dose: 650 mg Documented By: TRINIDAD Apixaban (Apixaban 5 Mg Tablet) 5 mg PO BID [facility] Last Admin: 07/04/25 08:22 Dose: 5 mg Documented By: REED Ascorbic Acid (Ascorbic Acid 500 Mg Tablet) 500 mg PO DAILY [facility] Last Admin: 07/04/25 08:22 Dose: 500 mg Documented By: REED Aspirin (Aspirin 81 Mg Tab.Chew) 81 mg PO DAILY [facility] Last Admin: 07/04/25 08:22 Dose: 81 mg Documented By: REED Bisacodyl (Bisacodyl 10 Mg Supp.Rect) 10 mg GA DAILY PRN PRN Reason: Constipation Calcium Carbonate (Calcium Carbonate 750 Mg Tab.Chew) 750 mg PO Q4H PRN PRN Reason: Heartburn Ferrous Sulfate (Ferrous Sulfate 324 Mg Tablet.Dr) 324 mg PO DAILY [facility] Last Admin: 07/04/25 08:22 Dose: 324 mg Documented By: REED Levothyroxine Sodium (Levothyroxine Sodium 100 Mcg Tablet) 100 mcg PO DAILY@0600 [facility] Last Admin: 07/04/25 05:35 Dose: 100 mcg Documented By: SOSA Magnesium Hydroxide (Milk Of Magnesia 30 Ml Oral.Susp) 30 ml PO DAILY PRN PRN Reason: Constipation Melatonin (Melatonin 3 Mg Tablet) 6 mg PO BEDTIME PRN PRN Reason: Insomnia Metoprolol Tartrate (Metoprolol Tartrate 25 Mg Tablet) 25 mg PO Q6H [facility]; Protocol Last Admin: 07/04/25 08:22 Dose: 25 mg Documented By: REED Metoprolol Tartrate (Metoprolol Tartrate 5 Mg/5 Ml Vial) 5 mg IVPUSH Q6H PRN; Protocol PRN Reason: HR > 110 bpm sustaining Multivitamins/Vitamin C (Multivitamin Tablet) 1 tab PO DAILY [facility] Last Admin: 07/04/25 08:22 Dose: 1 tab Documented By: REED Senna (Sennosides 8.6 Mg Tablet) 17.2 mg PO BEDTIME [facility] Last Admin: 07/03/25 20:30 Dose: 17.2 mg Documented By: SOSA Sodium Chloride (0.9 % Sodium Chloride Flush 3 Ml Syringe) 3 ml IVFLUSH QSHIFT [facility] Last Admin: 07/04/25 08:25 Dose: 3 ml Documented By: REED Labs 07/04/25 09:15 07/04/25 09:15 Labs: Laboratory Results - last 24 hr 07/03/25 10:11 POC Glucose 116 H Microbiology Microbiology Results: Microbiology 07/01/25 04:42 Blood Culture - Preliminary Blood - Venous No growth after 48 hours. 07/01/25 04:42 Blood Culture - Preliminary Blood - Venous No growth after 48 hours. Assessment and Plan (1) Urinary tract infection: Status: Acute (2) UTI (urinary tract infection) due to urinary indwelling Tomlinson catheter: Status: Acute (3) Sepsis: Status: Acute (4) Decubitus ulcer of sacral region: Status: Acute Plan 85-year-old male, long-term care resident with history of chronic suprapubic catheter, presumed dementia (unclear per family), prior ischaemic CVA, hypothyroidism, and limited mobility, admitted after unwitnessed fall, found to have sepsis secondary to complicated UTI in setting of indwelling suprapubic catheter, new-onset atrial arrhythmia (afib/flutter), decubitus ulcers, and demand NSTEMI; currently hemodynamically stable on the medical floor, receiving IV antibiotics and cardiac monitoring. Sepsis secondary to UTI (chronic suprapubic catheter) Toxic metabolic encephalopathy secondary to above Course:?Presented with fever, leukocytosis, and positive urinalysis (WBC >50, bacteria 4+, nitrite +, LE +). No severe sepsis/shock. Started on IV ceftriaxone. Blood and urine cultures pending.? Plan: * Continue IV ceftriaxone; adjust per culture/sensitivity results. * Monitor for clinical improvement: vitals, WBC, mental status. * Daily labs: CBC, BMP. * Maintain suprapubic catheter care; monitor for local infection. * Infectious Disease consult if no improvement or resistant organism. paroxysmal atrial arrhythmia (afib/flutter/SVT), likely secondary to Sepsis. Course:?Presented with tachycardia (HR up to 146), initially unclear rhythm, received adenosine x2 and IV metoprolol with HR improvement. Cardiology consulted; EKGs show sinus tachycardia with PACs, short runs of atrial arrhythmias. Started on metoprolol and apixaban.? Plan: * Continue metoprolol tartrate 25 mg PO q6h (IV if NPO or unable to tolerate PO). * Continue apixaban 5 mg PO BID for stroke prevention. * Cardiac monitoring for arrhythmia recurrence. * Avoid stimulants. * Repeat EKGs as indicated. * Echocardiogram completed (mild-moderate LV dysfunction, limited study). * Monitor for hypotension or bradycardia. Type 2 Demand inschemia in setting of sepsis and arrhythmia Course:?Troponin peaked at 321.7 ng/L, no chest pain or ischemic symptoms, attributed to demand ischemia from sepsis and tachyarrhythmia. Echo: mild- moderate LV dysfunction, no clear wall motion abnormality.? Plan: * Continue ASA 81 mg daily. * Continue rate control (metoprolol). * Monitor for new/worsening cardiac symptoms. * No evidence of acute coronary intervention at this time. Decubitus ulcers (ischial/buttocks/scrotum, stage II) Course:?Chronic wounds, present on admission, reportedly improved from baseline. Noted noncompliance with repositioning at SNF. No evidence of deep tissue infection or osteomyelitis on imaging.? Plan: * Continue local wound care per protocol. * Reposition every 2 hours. * Wound care consult for ongoing management. * Monitor for signs of infection (erythema, drainage, fever). * Optimize nutrition. Hypothyroidism Course:?On home levothyroxine 100 mcg daily. TSH within normal limits.? Plan: * Continue levothyroxine 100 mcg PO daily. * Monitor TSH if clinical status changes. Anemia of chronic disease Course:?Hgb 11.0 g/dL, stable, likely multifactorial (chronic disease, possible CKD).? Plan: * Monitor CBC. * Iron studies if anemia worsens. Will transfuse for Hb less than 7 * Continue iron supplementation. Chronic suprapubic catheter/urinary retention Course:?Catheter in place, scant purulent material, no surrounding erythema.? Plan: * Maintain catheter care and hygiene. * Monitor for signs of local infection. * Urology consulted Incidental right renal mass (1.1 cm, enhancing) Course:?Found on CT, no acute intervention required.? Plan: * Outpatient follow-up with urology. * Schedule nonemergent CT or MRI renal mass protocol after discharge. History of stroke/dementia Course:?No acute neurologic deficits on exam. Family disputes prior diagnosis of dementia/stroke.? Plan: * Continue aspirin 81 mg daily. * Monitor for new neurologic changes. * Clarify history with SNF and family. Constipation (on bowel regimen) Course:?Bedbound, on multiple PRN and scheduled agents.? Plan: * Continue bowel regimen (senna, bisacodyl, magnesium hydroxide, PRN enemas). * Monitor for bowel movements daily. - VTE Prophylaxis: Apixaban - Code Status: Full code (confirmed with family) - Diet:?regular diet - NDD3, 1:1 feeds, meds crushed with applesauce Total time managing care of this patient today: 35 minutes. Quality Stroke Does the patient have a stroke diagnosis?: No VTE Prior VTE?: No VTE Risk Level:: Medical - moderate - high VTE Device Contraindication: N/A - Device Ordered VTE Drug Contraindication: N/A - Med Ordered
[2025-07-04 09:22] LABS: Hematocrit 33.7 % (42.0-52.0); Hemoglobin 10.6 g/dl (14.0-18.0); Mean Corpuscular HGB Conc 31.5 g/dl (31.0-36.0); Mean Corpuscular Hemoglobin 29.0 pg (27.0-33.0); Mean Corpuscular Volume 92.1 fL (80.0-98.0); NRBC Abs Auto 0.000 X10*3/uL (0.0-0.012); NRBC Pct Auto 0.0 /100WBC (0.0-0.2); Platelet Count 152 X10*3/uL (160-400); Red Blood Count 3.66 X10*6/uL (4.60-5.80); White Blood Count 8.8 X10*3/uL (4.8-10.8)
[2025-07-04 09:40] LABS: Anion Gap 8 (12-20); Blood Urea Nitrogen 19 mg/dL (9-16); Calcium 8.4 mg/dL (8.4-10.2); Carbon Dioxide 25 mmol/L (22-29); Chloride 111 mmol/L (96-108); Creatinine Clr Calc Pharmacy 61.4; Estimated Glomerular Filt Rate > 60; Potassium 3.2 mmol/L (3.3-5.1); Sodium 141 mmol/L (135-145)
--- NOTE | 2025-07-04 15:43 | MHC.SLORD ---
Speech Language Pathology Order Status: ADJUNCT TEACHER unable to see patient this date. RN with no concerns at this time. Patient tolerating current diet, recommend continuing. ADJUNCT TEACHER to continue to follow.
[2025-07-05] VITALS (8 sets, daily range): BP systolic 109–176; BP diastolic 53–72; PULSE 54–77; RESP 16–18; TEMP 36.1–37.2; O2SAT 96–100
--- NOTE | 2025-07-05 | ECG_ITS ---
Test Reason : bradycardia Blood Pressure : */* mmHG Vent. Rate : 62 BPM Atrial Rate : 63 BPM P-R Int : 248 ms QRS Dur : 126 ms QT Int : 456 ms P-R-T Axes : -88 -43 -6 degrees QTcB Int : 462 ms NSR with first degree AV block Left axis deviation Left bundle branch block Abnormal ECG When compared with ECG of 01-Jul-2025 21:59, No significant changes seen Referred By: Rico Cummins Electronically Signed By: Ross Peralta
[2025-07-05] MEDS: 0.9 % Sodium Chloride Flush 3 ML SYRINGE IVFLUSH ×3 (03:46→17:32)
--- NOTE | 2025-07-05 08:34 | P.PNIM_ITS ---
Subjective Subjective Date of Service: 07/05/25 Interval History: Patient seen examined at bedside this morning, patient today states that he is feeling okay, continues to be pleasantly demented. Continues on IV antibiotics for UTI. Review of Systems Review of Systems: Yes Unobtainable due to mental status Physical Exam 2 Exam: Exam: General: A&O x1, comfortable, no pain Cardiac: S1, S2 auscultated with no S3/4, no MRG. Well perfused. Regularly regular Respiratory: Decreased inspiratory and expiratory breath sounds bilaterally especially at the bases, without wheezing, no respiratory distress. No respiratory distress GI/ : No abdominal pain on palpation, no masses or distentions. MSK: moving extremities Skin: senile purpura, decubitus ulcer Neurological: Normal neurological examination on overview. Vital Signs: Vital Signs: Last Vital Signs Temp 97.6 F 07/05/25 07:10 Pulse 60 07/05/25 07:10 Resp 18 07/05/25 07:10 BP 113/53 L 07/05/25 07:10 Pulse Ox 100 07/05/25 07:10 O2 Del Method Nasal Cannula 07/05/25 07:10 O2 Flow Rate 1 07/05/25 07:10 BMI result Body Mass Index 32.7 Objective Data Active Medications Acetaminophen (Acetaminophen 325 Mg Tablet) 650 mg PO Q6H PRN PRN Reason: Pain, Mild 1-3,fever,headache Last Admin: 07/05/25 03:44 Dose: 650 mg Documented By: JOSE M Apixaban (Apixaban 5 Mg Tablet) 5 mg PO BID [facility] Last Admin: 07/04/25 21:11 Dose: 5 mg Documented By: JOSE M Ascorbic Acid (Ascorbic Acid 500 Mg Tablet) 500 mg PO DAILY [facility] Last Admin: 07/04/25 08:22 Dose: 500 mg Documented By: REED Aspirin (Aspirin 81 Mg Tab.Chew) 81 mg PO DAILY [facility] Last Admin: 07/04/25 08:22 Dose: 81 mg Documented By: REED Bisacodyl (Bisacodyl 10 Mg Supp.Rect) 10 mg [place] DAILY PRN PRN Reason: Constipation Calcium Carbonate (Calcium Carbonate 750 Mg Tab.Chew) 750 mg PO Q4H PRN PRN Reason: Heartburn Ferrous Sulfate (Ferrous Sulfate 324 Mg Tablet.Dr) 324 mg PO DAILY [facility] Last Admin: 07/04/25 08:22 Dose: 324 mg Documented By: REED Ceftriaxone Sodium 1 gm/ (Sodium Chloride) 50 mls @ 100 mls/hr IV Q24H [facility] Stop: 07/09/25 09:59 Last Infusion: 07/04/25 11:09 Dose: Infused Documented By: REED Levothyroxine Sodium (Levothyroxine Sodium 100 Mcg Tablet) 100 mcg PO DAILY@0600 [facility] Last Admin: 07/05/25 05:38 Dose: 100 mcg Documented By: JOSE M Magnesium Hydroxide (Milk Of Magnesia 30 Ml Oral.Susp) 30 ml PO DAILY PRN PRN Reason: Constipation Melatonin (Melatonin 3 Mg Tablet) 6 mg PO BEDTIME PRN PRN Reason: Insomnia Metoprolol Tartrate (Metoprolol Tartrate 25 Mg Tablet) 25 mg PO Q6H [facility]; Protocol Last Admin: 07/05/25 03:44 Dose: 25 mg Documented By: JOSE M Metoprolol Tartrate (Metoprolol Tartrate 5 Mg/5 Ml Vial) 5 mg IVPUSH Q6H PRN; Protocol PRN Reason: HR > 110 bpm sustaining Multivitamins/Vitamin C (Multivitamin Tablet) 1 tab PO DAILY [facility] Last Admin: 07/04/25 08:22 Dose: 1 tab Documented By: REED Senna (Sennosides 8.6 Mg Tablet) 17.2 mg PO BEDTIME [facility] Last Admin: 07/04/25 21:11 Dose: 17.2 mg Documented By: JOSE M Sodium Chloride (0.9 % Sodium Chloride Flush 3 Ml Syringe) 3 ml IVFLUSH QSHIFT [facility] Last Admin: 07/05/25 03:46 Dose: 3 ml Documented By: JOSE M Labs 07/04/25 09:15 07/04/25 09:15 Labs: Laboratory Results - last 24 hr 07/04/25 09:15 MCV 92.1 MCH 29.0 MCHC 31.5 RDW 15.1 Plt Count 152 L MPV 9.3 L Absolute Nucleated RBC 0.000 Nucleated RBC % (auto) 0.0 Anion Gap 8 L Estim Creat Clear Calc 61.4 Estimated GFR > 60 Random Glucose 129 H Calcium 8.4 Assessment and Plan (1) Urinary tract infection: Status: Acute (2) UTI (urinary tract infection) due to urinary indwelling Tomlinson catheter: Status: Acute (3) Sepsis: Status: Acute (4) Decubitus ulcer of sacral region: Status: Acute Plan 85-year-old male, long-term care resident with history of chronic suprapubic catheter, presumed dementia (unclear per family), prior ischaemic CVA, hypothyroidism, and limited mobility, admitted after unwitnessed fall, found to have sepsis secondary to complicated UTI in setting of indwelling suprapubic catheter, new-onset atrial arrhythmia (afib/flutter), decubitus ulcers, and demand NSTEMI; currently hemodynamically stable on the medical floor, receiving IV antibiotics and cardiac monitoring. Sepsis secondary to UTI (chronic suprapubic catheter) Toxic metabolic encephalopathy secondary to above Course:?Presented with fever, leukocytosis, and positive urinalysis (WBC >50, bacteria 4+, nitrite +, LE +). No severe sepsis/shock. Started on IV ceftriaxone. Blood and urine cultures pending.? Plan: * Continue IV ceftriaxone, sample contaminated, however given improvement will continue to complete a total of 7 days * Monitor for clinical improvement: vitals, WBC, mental status. * Daily labs: CBC, BMP. * Maintain suprapubic catheter care; monitor for local infection. * Infectious Disease consult if no improvement or resistant organism. paroxysmal atrial arrhythmia (afib/flutter/SVT), likely secondary to Sepsis. Course:?Presented with tachycardia (HR up to 146), initially unclear rhythm, received adenosine x2 and IV metoprolol with HR improvement. Cardiology consulted; EKGs show sinus tachycardia with PACs, short runs of atrial arrhythmias. Started on metoprolol and apixaban.? Plan: * Continue metoprolol tartrate 25 mg PO q6h (IV if NPO or unable to tolerate PO). * Continue apixaban 5 mg PO BID for stroke prevention. * Cardiac monitoring for arrhythmia recurrence. * Avoid stimulants. * Repeat EKGs as indicated. * Echocardiogram completed (mild-moderate LV dysfunction, limited study). * Monitor for hypotension or bradycardia. Type 2 Demand ischemia in setting of sepsis and arrhythmia Course:?Troponin peaked at 321.7 ng/L, no chest pain or ischemic symptoms, attributed to demand ischemia from sepsis and tachyarrhythmia. Echo: mild- moderate LV dysfunction, no clear wall motion abnormality.? Plan: * Continue ASA 81 mg daily. * Continue rate control (metoprolol). * Monitor for new/worsening cardiac symptoms. * No evidence of acute coronary intervention at this time. Decubitus ulcers (ischial/buttocks/scrotum, stage II) Course:?Chronic wounds, present on admission, reportedly improved from baseline. Noted noncompliance with repositioning at SNF. No evidence of deep tissue infection or osteomyelitis on imaging.? Plan: * Continue local wound care per protocol. * Reposition every 2 hours. * Wound care consult for ongoing management. * Monitor for signs of infection (erythema, drainage, fever). * Optimize nutrition. Hypothyroidism Course:?On home levothyroxine 100 mcg daily. TSH within normal limits.? Plan: * Continue levothyroxine 100 mcg PO daily. * Monitor TSH if clinical status changes. Anemia of chronic disease Course:?Hgb 11.0 g/dL, stable, likely multifactorial (chronic disease, possible CKD).? Plan: * Monitor CBC. * Iron studies if anemia worsens. Will transfuse for Hb less than 7 * Continue iron supplementation. Chronic suprapubic catheter/urinary retention Course:?Catheter in place, scant purulent material, no surrounding erythema.? Plan: * Maintain catheter care and hygiene. * Monitor for signs of local infection. * Urology consulted Incidental right renal mass (1.1 cm, enhancing) Course:?Found on CT, no acute intervention required.? Plan: * Outpatient follow-up with urology. * Schedule nonemergent CT or MRI renal mass protocol after discharge. History of stroke/dementia Course:?No acute neurologic deficits on exam. Family disputes prior diagnosis of dementia/stroke.? Plan: * Continue aspirin 81 mg daily. * Monitor for new neurologic changes. * Clarify history with SNF and family. Constipation (on bowel regimen) Course:?Bedbound, on multiple PRN and scheduled agents.? Plan: * Continue bowel regimen (senna, bisacodyl, magnesium hydroxide, PRN enemas). * Monitor for bowel movements daily. - VTE Prophylaxis: Apixaban - Code Status: Full code (confirmed with family) - Diet:?regular diet - NDD3, 1:1 feeds, meds crushed with applesauce Total time managing care of this patient today: 35 minutes. Quality Stroke Does the patient have a stroke diagnosis?: No VTE Prior VTE?: No VTE Risk Level:: Medical - moderate - high VTE Device Contraindication: N/A - Device Ordered VTE Drug Contraindication: N/A - Med Ordered
[2025-07-05] MEDS: Ferrous Sulfate 324 MG TABLET.DR PO (09:13)
--- NOTE | 2025-07-05 10:31 | MHC.CM.PN ---
Per ROUNDS, MD will put in an order for a line today.
--- NOTE | 2025-07-05 11:43 | MHC.CLN ---
F/U PT WITH INCREASED NUTRITION RISK R/T PRESSURE INJURY DIET ADVANCED TO CHOPPED RECOMMEND ADDING ENSURE TID TO PROMOTE WOUND HEALING SUPPLEMENT TO PROVIDE 1050KCALS, 60G PROTEIN FOLLOWING FOR DIET ADVANCEMENT
--- NOTE | 2025-07-05 14:57 | MHC.SLORD ---
Speech Language Pathology Order Status: Pt resting after breakfast. RN consulted, pt tolerating diet as ordered, meds crushed in puree, 1:1 feeding. GATE TECHNICIAN to followup x1.
[2025-07-05] MEDS: Milk of Magnesia 30 ML ORAL.SUSP PO (22:14)
[2025-07-05 22:15] LABS: Glucose, Whole Blood 116 mg/dL (60-115)
[2025-07-06] MEDS: 0.9 % Sodium Chloride Flush 3 ML SYRINGE IVFLUSH ×2 (01:28→08:46)
[2025-07-06 03:38] VITALS: BP 122/57; PULSE 64; RESP 18; TEMP 36.4; O2SAT 94
[2025-07-06 07:40] VITALS: BP 140/65; PULSE 72; RESP 18; TEMP 36.5; O2SAT 93
[2025-07-06] MEDS: Ferrous Sulfate 324 MG TABLET.DR PO (08:46)
--- NOTE | 2025-07-06 10:31 | MHC.CM.PN ---
Per MD, Patient is medically cleared for dc today to return to LTC @ [facility]. IMM addressed verbally with Patient and with his permission, CM informed Niece/HCP/Danette of the dc plan @ [phone].
[2025-07-06 12:00] VITALS: BP 121/63; PULSE 76; RESP 18; TEMP 36.8; O2SAT 95
--- NOTE | 2025-07-06 13:10 | PM.DS ---
DS: Providers Provider Date of admission: 07/01/25 09:33 Date of discharge: 07/06/25 Primary care physician: Lenny Higginbotham MD Consults: 07/01/25 09:59 Consult to Wound Care Routine Consulting Provider: [facility] [place] Wound Care Management Reason for consultation: large wound ischium/buttocks/scrotum 07/01/25 10:20 Consult to Cardiology Routine Consulting Provider: [facility] [place] Cardiovascular Specialists Reason for consultation: tachycardia, ?new aflutter 07/02/25 13:49 Consult to Urology Routine Consulting Provider: [facility] [place] Urology Services Reason for consultation: suprapubic catehter, UTI/ sepsis DS: Diagnosis Discharge Diagnosis (1) Urinary tract infection: Status: Acute (2) UTI (urinary tract infection) due to urinary indwelling Tomlinson catheter: Status: Acute (3) Sepsis: Status: Acute (4) Decubitus ulcer of sacral region: Status: Acute DS: Summary Hospital Course Hospital Course: 85-year-old male, long-term care resident with history of chronic suprapubic catheter, presumed dementia (unclear per family), prior ischaemic CVA, hypothyroidism, and limited mobility, admitted after unwitnessed fall, found to have sepsis secondary to complicated UTI in setting of indwelling suprapubic catheter, new-onset atrial arrhythmia (afib/flutter), decubitus ulcers, and demand NSTEMI; patient was placed on IV antibiotics for suspected UTI, however culture showed contaminated sample. Given patient's improvement of symptoms, we will continue with IV antibiotics to complete a total of 7 days, we will transition from IV antibiotics to p.o.. Sepsis secondary to UTI (chronic suprapubic catheter), improved Toxic metabolic encephalopathy secondary to above, improved S/p IV ceftriaxone, will transition to PO cephalosporin with EoT on 07/09 to complete a total of 7 days Monitor for clinical improvement: vitals, WBC, mental status. Maintain suprapubic catheter care; monitor for local infection. paroxysmal atrial arrhythmia (afib/flutter/SVT), likely secondary to Sepsis. Continue metoprolol tartrate 25 mg PO TID Continue apixaban 5 mg PO BID for stroke prevention. Cardiac monitoring for arrhythmia recurrence. Avoid stimulants. Echocardiogram completed (mild-moderate LV dysfunction, limited study). Monitor for hypotension or bradycardia. Type 2 Demand ischemia in setting of sepsis and arrhythmia Continue ASA 81 mg daily. Continue rate control (metoprolol). Monitor for new/worsening cardiac symptoms. No evidence of acute coronary intervention at this time. Decubitus ulcers (ischial/buttocks/scrotum, stage II) Course: Chronic wounds, present on admission, reportedly improved from baseline. Continue local wound care per protocol. Reposition every 2 hours. In house Wound care consult for ongoing management. Monitor for signs of infection (erythema, drainage, fever). Optimize nutrition. Hypothyroidism Continue levothyroxine 100 mcg PO daily. Anemia of chronic disease Monitor CBC. Continue iron supplementation. Chronic suprapubic catheter/urinary retention Maintain catheter care and hygiene. Monitor for signs of local infection. Urology as outpatient Incidental right renal mass (1.1 cm, enhancing) Course: Found on CT, no acute intervention required. Plan: Outpatient follow-up with urology. Schedule nonemergent CT or MRI renal mass protocol after discharge. History of stroke/dementia Continue aspirin 81 mg daily. Monitor for new neurologic changes. Hypertension continue lisinopril 10mg qd Constipation (on bowel regimen) Course: Bedbound, on multiple PRN and scheduled agents. Plan: Continue bowel regimen (senna, bisacodyl, magnesium hydroxide, PRN enemas). Monitor for bowel movements daily. Time Attestation Discharge Coordination Time (in mins): 35 minutes Quality: Safe Use of Opioids Does Pt have an Active Cancer Diagnosis on the Problem List?: No Quality: Stroke Does the patient have a stroke diagnosis?: No Physical Exam Exam: Exam: General: A&O x1, comfortable, no pain Cardiac: S1, S2 auscultated with no S3/4, no MRG. Well perfused. Regularly regular Respiratory: Decreased inspiratory and expiratory breath sounds bilaterally especially at the bases, without wheezing, no respiratory distress. No respiratory distress GI/ : No abdominal pain on palpation, no masses or distentions. MSK: moving extremities Skin: senile purpura, decubitus ulcer Neurological: Normal neurological examination on overview. Vital Signs: Vital Signs: Last Vital Signs Temp 98.2 F 07/06/25 12:00 Pulse 76 07/06/25 12:00 Resp 18 07/06/25 12:00 BP 121/63 07/06/25 12:00 Pulse Ox 95 07/06/25 12:00 O2 Del Method Room Air 07/06/25 12:00 O2 Flow Rate 2 07/05/25 18:57 BMI result Body Mass Index 32.7 DS: Data Data Completed and Pending Labs on day of discharge: Laboratory Results - last 24 hr 07/05/25 22:10 POC Glucose 116 H Discharge Plan Discharge Patient Disposition: er [facility] Discharge Diagnosis: Sepsis UTI Toxic metabolic encephalopathy Paroxysmal A-fib Referrals: [facility] [Outside] - 1 Week Lenny Higginbotham MD [Primary Care Provider, Internal Medicine] - 1 Week Discharge Medications: New cefixime [Suprax] 400 mg capsule 400 mg PO DAILY 4 Days Qty: 4 0RF lisinopril 10 mg Tablet 10 mg PO DAILY 30 Days Qty: 30 0RF Protocol: Hold for SBP< HOLD for SBP < : 90 metoprolol tartrate 25 mg Tablet 25 mg PO Q8H 30 Days Qty: 90 0RF Protocol: Hold for SBP/HR < HOLD for SBP < : 90 HOLD for HR < : 60 Eliquis 5 mg Tablet 5 mg PO BID 30 Days Qty: 60 0RF Continued multivitamin Tablet 1 tab PO DAILY sennosides [senna] 8.6 mg Tablet 17.2 mg PO BEDTIME acetaminophen [Tylenol] 325 mg Tablet 650 mg PO Q4H PRN (Reason: pain/fever) acetaminophen 650 mg Suppository 650 mg WA Q4H PRN (Reason: general discomfort/fever) ondansetron HCl 4 mg Tablet 4 mg PO Q8H PRN (Reason: Nausea) levothyroxine 100 mcg Tablet 100 mcg PO DAILY@0600 magnesium hydroxide [Milk of Magnesia] 400 mg/5 mL Suspension 30 ml PO DAILY PRN (Reason: Constipation) ascorbic acid (vitamin C) 500 mg Tablet 500 mg PO DAILY bisacodyl 10 mg Suppository 10 mg WA DAILY PRN (Reason: Constipation) Fleet Enema 19-7 gram/118 mL Enema 118 ml WA DAILY PRN (Reason: Constipation) aspirin 81 mg Tablet,Chewable 81 mg PO DAILY ferrous sulfate 324 mg (65 mg iron) Tablet,Delayed Release (Dr/Ec) 324 mg PO DAILY Discontinued sulfamethoxazole-trimethoprim [Bactrim DS] 800-160 mg Tablet 1 tab PO DAILY PRN (Reason: catheter change) Discharge Orders: Discharge Order (Routine); Ordered 07/06/25 Ordered By: Rico Cummins Activity on Discharge: As tolerated Stand Alone Forms: Patient Portal Discharge page Print Language: Macedonian Care Plan Goals: Continue PO antibiotics for suspected UTI Health Concerns: Sepsis Toxic metabolic encephalopathy Suspected UTI A fib Plan of Treatment: continue PO antibiotic for additional 4 days for UTI continue metoprolol tartrate, apixaban for atrial fibrillation Assessment: 85-year-old male, long-term care resident with history of chronic suprapubic catheter, presumed dementia (unclear per family), prior ischaemic CVA, hypothyroidism, and limited mobility, admitted after unwitnessed fall, found to have sepsis secondary to complicated UTI in setting of indwelling suprapubic catheter, new-onset atrial arrhythmia (afib/flutter), decubitus ulcers, and demand NSTEMI; patient was placed on IV antibiotics for suspected UTI, however culture showed contaminated sample. Given patient's improvement of symptoms, we will continue with IV antibiotics to complete a total of 7 days, we will transition from IV antibiotics to p.o..
== END 2025-07-06 13:40 | DRG 698 ==
LOC: HO.ED 08:39 → HO.EDOVER 09:34 → HO.IMC 18:01
PROVIDERS: Emergency Medicine; Hospitalist; Internal Medicine; Physician Assistant Medical; Admitting Provider Physician Assistant Medical; Emergency Provider Emergency Medicine; PCP Family Medicine; Visit Provider Student in an Organized Health Care Education/Training Program
DX: T83.518A Infection and inflammatory reaction due to other urinary catheter, initial encounter (principal); A41.9 Sepsis, unspecified organism; I21.A1 Myocardial infarction type 2; G92.8 Other toxic encephalopathy; I48.92 Unspecified atrial flutter; N39.0 Urinary tract infection, site not specified; F03.90 Unspecified dementia, unspecified severity, without behavioral disturbance, psychotic disturbance, mood disturbance, and anxiety; W06.XXXA Fall from bed, initial encounter; Y92.122 Bedroom in nursing home as the place of occurrence of the external cause; E03.9 Hypothyroidism, unspecified; D63.1 Anemia in chronic kidney disease; N18.9 Chronic kidney disease, unspecified; L89.322 Pressure ulcer of left buttock, stage 2; L89.312 Pressure ulcer of right buttock, stage 2; Z74.01 Bed confinement status; Z79.82 Long term (current) use of aspirin; I12.9 Hypertensive chronic kidney disease with stage 1 through stage 4 chronic kidney disease, or unspecified chronic kidney disease; K59.00 Constipation, unspecified; L89.892 Pressure ulcer of other site, stage 2; L89.159 Pressure ulcer of sacral region, unspecified stage; N28.89 Other specified disorders of kidney and ureter; Z20.822 Contact with and (suspected) exposure to COVID-19; Z87.440 Personal history of urinary (tract) infections; Z79.890 Hormone replacement therapy; Z79.899 Other long term (current) drug therapy
CPT/HCPCS: 36415; 70450; 71045; 72125; 74177; 80048; 80053; 81001; 82947; 83605; 83735; 84443; 84484; 85025; 85027; 87040; 87086; 87637; 92610; 93005; 93306; 99285; J0153; J0616; J0696; J7120; Q9957; Q9967

== ENCOUNTER → 2025-07-01 03:43 | Outpatient (BNV) | payer MEDICARE, MEDICAID, SELFPAY | PROVIDERS: Admitting Provider Physician Assistant Medical; Emergency Provider Emergency Medicine; PCP Family Medicine; Visit Provider Internal Medicine Cardiovascular Disease | DX: I47.10 Supraventricular tachycardia, unspecified (principal); I21.09 ST elevation (STEMI) myocardial infarction involving other coronary artery of anterior wall; I44.0 Atrioventricular block, first degree; I25.2 Old myocardial infarction; R00.0 Tachycardia, unspecified | CPT/HCPCS: 93010 ==

== ENCOUNTER → 2025-07-01 03:53 | Outpatient (BNV) | payer MEDICARE, MEDICAID, SELFPAY | PROVIDERS: Emergency Provider Emergency Medicine; Visit Provider Radiology Vascular & Interventional Radiology | DX: N20.0 Calculus of kidney (principal); L89.329 Pressure ulcer of left buttock, unspecified stage; M50.30 Other cervical disc degeneration, unspecified cervical region; I67.82 Cerebral ischemia; J32.2 Chronic ethmoidal sinusitis; Z04.3 Encounter for examination and observation following other accident; R09.02 Hypoxemia; J98.6 Disorders of diaphragm | CPT/HCPCS: 70450; 71045; 72125; 74177 ==

== ENCOUNTER 2025-07-01 09:33 | Outpatient (BNV) | payer MEDICARE, MEDICAID, SELFPAY | END 2025-07-05 12:26 | PROVIDERS: Admitting Provider Physician Assistant Medical; Emergency Provider Emergency Medicine; PCP Family Medicine; Visit Provider Internal Medicine Cardiovascular Disease | DX: I44.7 Left bundle-branch block, unspecified (principal); I44.0 Atrioventricular block, first degree | CPT/HCPCS: 93010 ==

== ENCOUNTER → 2025-07-01 09:33 | Outpatient (BNV) | payer MEDICARE, MEDICAID, SELFPAY | PROVIDERS: Admitting Provider Physician Assistant Medical; Emergency Provider Emergency Medicine; PCP Family Medicine; Visit Provider Internal Medicine Cardiovascular Disease | DX: I49.9 Cardiac arrhythmia, unspecified (principal); R79.89 Other specified abnormal findings of blood chemistry | CPT/HCPCS: 99222 ==

== ENCOUNTER → 2025-07-01 09:33 | Outpatient (BNV) | payer MEDICARE, MEDICAID, SELFPAY | PROVIDERS: Admitting Provider Physician Assistant Medical; Emergency Provider Emergency Medicine; PCP Family Medicine; Visit Provider Physician Assistant Medical | DX: N39.0 Urinary tract infection, site not specified (principal); I48.91 Unspecified atrial fibrillation; L89.159 Pressure ulcer of sacral region, unspecified stage | CPT/HCPCS: 99223 ==

== ENCOUNTER → 2025-07-01 09:33 | Outpatient (BNV) | payer MEDICARE, MEDICAID, SELFPAY | PROVIDERS: Admitting Provider Physician Assistant Medical; Emergency Provider Emergency Medicine; PCP Family Medicine; Visit Provider Urology | DX: T83.511A Infection and inflammatory reaction due to indwelling urethral catheter, initial encounter (principal); N39.0 Urinary tract infection, site not specified; Z93.59 Other cystostomy status | CPT/HCPCS: 99222 ==